=== PATIENT | male | born 1945 | race Caucasian/White ===

== ENCOUNTER 2017-02-24 22:07 | Observation (INO) ==
[2017-02-24] MEDS ORDERED: 0.9 % Sodium Chloride 1,000 ML IVC ONE (22:14)
[2017-02-24] MEDS ORDERED: Ondansetron 4 MG/2 ML VIAL IVP ONE (22:14)
[2017-02-24] MEDS ORDERED: *HR* Morphine 2 MG/ML SYRINGE IVP ONE (22:14)
[2017-02-24 22:39] LABS: Basophils # 0.1 K/mcL (0.0-0.2); Basophils % 0.2 %; Hematocrit 49.5 % (37.5-50.1); Hemoglobin 16.3 g/dL (12.9-16.9); Immature Granulocytes % 0.4 % (0-4); Immature Platelets 10.3 % (1.1-6.1); Lymphocytes # 0.8 K/mcL (0.6-4.6); Mean Corpuscular HGB Conc 32.9 g/dL (31.6-35.5); Mean Corpuscular Hemoglobin 28.9 pg (28.0-33.3); Mean Corpuscular Volume 87.8 fL (83.0-100.0); Mean Platelet Volume 11.2 fL (9.4-12.4); Monocytes # 1.2 K/mcL (0.0-1.3); Monocytes % 5.8 %; Neutrophils # 18.1 K/mcL (1.6-8.9); Platelet Count 223 K/mcL (140-400); Red Blood Count 5.64 M/mcL (4.19-5.50); Red Cell Distribution Width 12.7 % (11.5-14.5); Segmented Neutrophils % 89.6 %
[2017-02-24 22:45] LABS: INR 1.1; Prothrombin Time 12.4 Seconds (9.4-12.1)
[2017-02-24 22:56] LABS: Alanine Aminotransferase 26 Units/L (0-55); Albumin 4.1 g/dL (3.5-5.0); Albumin/Globulin Ratio 1.5 (1.1-2.2); Alkaline Phosphatase 97 Units/L (38-126); Amylase 47 Units/L (25-125); Aspartate Amino Transferase 20 Units/L (5-34); BUN/Creatinine Ratio 17 (6-26); Bilirubin,Direct 0.6 mg/dL (0.0-0.5); Bilirubin,Indirect 0.9 mg/dL (0.0-1.2); Bilirubin,Total 1.5 mg/dL (0.2-1.2); Blood Urea Nitrogen 14 mg/dL (8-26); Calcium 9.3 mg/dL (8.6-10.8); Carbon Dioxide 23 mEq/L (19-29); Chloride 101 mEq/L (98-109); Globulin 2.8 g/dL (2.4-3.5); Glucose 153 mg/dL (70-99); Lipase 12 Units/L (8-78); Osmolality,Calculated 284 (280-300); Potassium 3.8 mEq/L (3.5-4.5); Sodium 135 mEq/L (136-145); Total Protein 6.9 g/dL (6.0-8.3); eGFR For African Americans > 60 (> 60); eGFR For Non-African Americans > 60 (> 60)
[2017-02-25 00:17] LABS: Bilirubin,Urine Negative (Negative); Blood,Urine Negative (Negative); Clarity,Urine Clear (Clear); Color,Urine Yellow (Yellow); Glucose,Urine (UA) 500 mg/dL (Normal); Ketones,Urine 40 mg/dL (Negative); Leukocyte Esterase,Urine Negative (Negative); Nitrite,Urine Negative (Negative); Protein,Urine Trace mg/dL (Neg-Trace); Specific Gravity,Urine 1.028 (1.010-1.025); Urobilinogen,Urine Normal (Normal)
[2017-02-25 00:19] LABS: Bacteria,Urine None Seen per hpf (None-Few); Hyaline Casts,Urine None Seen per lpf (None-Few); Squamous Epithelial Cell,Urine Moderate per lpf (None-Few); WBC,Urine 0-3 per hpf (0-3)
[2017-02-25] MEDS ORDERED: 0.9 % Sodium Chloride 1,000 ML IVC SCH (00:45)
--- NOTE | 2017-02-25 01:08 | Emergency Department Note ---
Disposition Clinical Impression: Acute cholecystitis Disposition: Admitted As Inpatient Condition: Good [facility] - Forms: Work/School Release, ED Satisfaction Letter Abdominal Pain HPI - General Chief Complaint: ED Abdominal Pain Stated Complaint: abd pain Time Seen by Provider: 02/24/17 22:10 Source: patient, EMS Nursing Notes Reviewed: Yes Vital Signs Reviewed: Yes - History of Present Illness HPI Narrative: 71-year-old male with history of hypertension and presents with concern for abdominal pain. He was actually sent from the [facility] after findings of hydrops gallbladder on CAT scan. He has no fever but had onset of pain at 10 AM this morning. He denies previous surgical history. Zosyn was administered I the [facility]. Pain Scale: 2 - Related Data Home Medications Medication Instructions Recorded Confirmed Cholecalciferol (Vitamin D3) 1,000 unit PO DAILY 12/11/16 12/11/16 [Vitamin D3] Naproxen [Naprosyn] 500 mg PO DAILY 12/11/16 12/11/16 Previous Rx's Medication Instructions Recorded Docusate [Colace] 100 mg PO BID #60 capsule 12/11/16 Oxycodone HCl/Acetaminophen 1 each PO Q4HR PRN #25 tablet 12/11/16 [Percocet 5-325 mg Tablet] Allergies Allergy/AdvReac Type Severity Reaction Status Date / Time No Known Allergies Allergy Verified 12/11/16 13:08 All systems ED: reviewed and negative except as stated. Abdominal Pain PMH - Past Medical History Medical history: Reports: hyperlipidemia, hypertension, other Psychiatric history: Reports: no psych history - Social History Smoking status: Unknown if ever smoked Alcohol use: Reports: none Drug use: Reports: none Physical Exam Mild right upper quadrant tenderness, no peritonitis - General Limitations: no limitations General appearance: alert, in no apparent distress - Eye Eye exam: Present: normal appearance - ENT ENT exam: normal exam, normal oropharynx - Neck Neck exam: Present: normal inspection - Chest Chest inspection: Present: normal inspection - Respiratory Respiratory exam: Present: normal lung sounds bilaterally - Cardiovascular Cardiovascular exam: Present: regular rate, normal rhythm - Abdominal Exam Abdominal exam: Present: soft, Non-Tender - Extremities Exam Extremities exam: Present: normal inspection, full ROM - Expanded Lower Extremity Exam Hip/Pelvis exam: Present: normal inspection, full ROM Upper leg exam: Present: normal inspection, full ROM Knee exam: Present: normal inspection, full ROM Lower leg exam: Present: normal inspection, full ROM Ankle exam: Present: normal inspection, full ROM Foot/toe exam: Present: normal inspection, full ROM Neurovascular/Tendon exam: Present: normal capillary refill. Absent: pulse deficit Gait: observed and normal, not tested/not observed - Back Exam Back exam: Present: normal inspection, full ROM - Neurological Exam Neurological exam: Present: alert, oriented X3, CN II-XII intact - Psychiatric Psychiatric exam: Present: normal affect, normal mood - Skin Skin exam: Present: warm, dry Course Vital Signs Temperature 98.5 F 02/24/17 22:15 Pulse Rate 70 02/24/17 22:15 Respiratory Rate 16 02/24/17 22:15 Blood Pressure 154/95 02/24/17 22:15 O2 Sat by Pulse Oximetry 97 02/24/17 22:15 Temperature 98.5 F 02/24/17 22:15 Pulse Rate 77 02/25/17 00:25 Respiratory Rate 14 02/25/17 00:25 Blood Pressure 148/84 02/25/17 00:25 O2 Sat by Pulse Oximetry 95 02/25/17 00:25 Oxygen Delivery Oxygen Delivery Room Air Abdominal Pain - MDM Narrative Medical decision making narrative: 71-year-old male with acute cholecystitis. Zosyn was administered. Ultrasound confirms acute cholecystitis. Discussed with general surgery. The patient will need to be admitted. IV fluids initiated. Patient will be admitted to medicine after consultation with general surgery. - Medical Records Medical records reviewed: Yes I reviewed the patient's medical records. - Lab Data Lab results reviewed: Yes I reviewed the patient's lab results. Result diagrams: 02/24/17 22:30 02/24/17 22:30 Lab Results 02/24/17 02/24/17 02/24/17 Range/Units 22:30 22:30 22:30 WBC 20.2 H (4.3-11.1) K/mcL RBC 5.64 H (4.19-5.50) M/mcL Hgb 16.3 (12.9-16.9) g/dL Hct 49.5 (37.5-50.1) % MCV 87.8 (83.0-100.0) fL MCH 28.9 (28.0-33.3) pg MCHC 32.9 (31.6-35.5) g/dL RDW 12.7 (11.5-14.5) % Plt Count 223 (140-400) K/mcL MPV 11.2 (9.4-12.4) fL Immature Gran % 0.4 (0-4) % Seg Neutrophils % 89.6 % Lymphocytes % 4.0 % Monocytes % 5.8 % Eosinophils % 0.0 % Basophils % 0.2 % Neutrophils # 18.1 H (1.6-8.9) K/mcL Lymphocytes # 0.8 (0.6-4.6) K/mcL Monocytes # 1.2 (0.0-1.3) K/mcL Eosinophils # 0.0 (0.0-0.6) K/mcL Basophils # 0.1 (0.0-0.2) K/mcL Immature Plt Fraction 10.3 H (1.1-6.1) % PT 12.4 H (9.4-12.1) Seconds INR 1.1 Sodium 135 L (136-145) mEq/L Potassium 3.8 (3.5-4.5) mEq/L Chloride 101 (98-109) mEq/L Carbon Dioxide 23 (19-29) mEq/L BUN 14 (8-26) mg/dL Creatinine 0.84 (0.72-1.25) mg/dL Est GFR ( Amer) > 60 (> 60) Est GFR (Non-Af Amer) > 60 (> 60) BUN/Creatinine Ratio 17 (6-26) Glucose 153 H (70-99) mg/dL Calculated Osmolality 284 (280-300) Calcium 9.3 (8.6-10.8) mg/dL Total Bilirubin 1.5 H (0.2-1.2) mg/dL Direct Bilirubin 0.6 H (0.0-0.5) mg/dL Indirect Bilirubin 0.9 (0.0-1.2) mg/dL AST 20 (5-34) Units/L ALT 26 (0-55) Units/L Alkaline Phosphatase 97 (38-126) Units/L Troponin I (0-0.03) ng/mL Serum Total Protein 6.9 (6.0-8.3) g/dL Albumin 4.1 (3.5-5.0) g/dL Globulin 2.8 (2.4-3.5) g/dL Albumin/Globulin Ratio 1.5 (1.1-2.2) Amylase 47 (25-125) Units/L Lipase 12 (8-78) Units/L Urine Color (Yellow) Urine Clarity (Clear) Urine pH (5.0-8.0) pH Units Ur Specific [place] (1.010-1.025) Urine Protein (Neg-Trace) mg/dL Urine Glucose (UA) (Normal) mg/dL Urine Ketones (Negative) mg/dL Urine Blood (Negative) Urine Nitrite (Negative) Urine Bilirubin (Negative) Urine Urobilinogen (Normal) mg/dL Ur Leukocyte Esterase (Negative) Urine Microscopic RBC (0-3) per hpf Urine Microscopic WBC (0-3) per hpf Ur Squamous Epith Cells (None-Few) per lpf Urine Bacteria (None-Few) per hpf Hyaline Casts (None-Few) per lpf Ur Culture Indicated? (NO) 02/24/17 02/24/17 Range/Units 22:30 23:59 WBC (4.3-11.1) K/mcL RBC (4.19-5.50) M/mcL Hgb (12.9-16.9) g/dL Hct (37.5-50.1) % MCV (83.0-100.0) fL MCH (28.0-33.3) pg MCHC (31.6-35.5) g/dL RDW (11.5-14.5) % Plt Count (140-400) K/mcL MPV (9.4-12.4) fL Immature Gran % (0-4) % Seg Neutrophils % % Lymphocytes % % Monocytes % % Eosinophils % % Basophils % % Neutrophils # (1.6-8.9) K/mcL Lymphocytes # (0.6-4.6) K/mcL Monocytes # (0.0-1.3) K/mcL Eosinophils # (0.0-0.6) K/mcL Basophils # (0.0-0.2) K/mcL Immature Plt Fraction (1.1-6.1) % PT (9.4-12.1) Seconds INR Sodium (136-145) mEq/L Potassium (3.5-4.5) mEq/L Chloride (98-109) mEq/L Carbon Dioxide (19-29) mEq/L BUN (8-26) mg/dL Creatinine (0.72-1.25) mg/dL Est GFR ( Amer) (> 60) Est GFR (Non-Af Amer) (> 60) BUN/Creatinine Ratio (6-26) Glucose (70-99) mg/dL Calculated Osmolality (280-300) Calcium (8.6-10.8) mg/dL Total Bilirubin (0.2-1.2) mg/dL Direct Bilirubin (0.0-0.5) mg/dL Indirect Bilirubin (0.0-1.2) mg/dL AST (5-34) Units/L ALT (0-55) Units/L Alkaline Phosphatase (38-126) Units/L Troponin I 0.00 (0-0.03) ng/mL Serum Total Protein (6.0-8.3) g/dL Albumin (3.5-5.0) g/dL Globulin (2.4-3.5) g/dL Albumin/Globulin Ratio (1.1-2.2) Amylase (25-125) Units/L Lipase (8-78) Units/L Urine Color Yellow (Yellow) Urine Clarity Clear (Clear) Urine pH 7.0 (5.0-8.0) pH Units Ur Specific [place] 1.028 H (1.010-1.025) Urine Protein Trace (Neg-Trace) mg/dL Urine Glucose (UA) 500 H (Normal) mg/dL Urine Ketones 40 H (Negative) mg/dL Urine Blood Negative (Negative) Urine Nitrite Negative (Negative) Urine Bilirubin Negative (Negative) Urine Urobilinogen Normal (Normal) mg/dL Ur Leukocyte Esterase Negative (Negative) Urine Microscopic RBC 3-5 H (0-3) per hpf Urine Microscopic WBC 0-3 (0-3) per hpf Ur Squamous Epith Cells Moderate H (None-Few) per lpf Urine Bacteria None Seen (None-Few) per hpf Hyaline Casts None Seen (None-Few) per lpf Ur Culture Indicated? NO (NO) - EKG Data EKG attestation: Yes I reviewed and interpreted this EKG. Critical Care Time Critical Care Time: No
--- NOTE | 2017-02-25 03:16 | Internal Med History&Physical ---
Date of Encounter: 02/25/17 Time of Encounter: 03:14 Assessment and Plan (1) DVT prophylaxis Current visit: Yes Status: Acute Start Lovenox postop at prophylactic doses. (2) Elevated white blood cell count Current visit: Yes Status: Acute Likely secondary to cholecystitis. Monitor WBC trend, temperature curve. Follow-up blood cultures. Qualifiers: Leukocytosis type: unspecified Qualified Code(s): D72.829 - Elevated white blood cell count, unspecified (3) Acute cholecystitis Current visit: Yes Status: Acute Diagnosis based on atypical abdominal pain and ultrasound findings consistent with cholelithiasis and acute cholecystitis We will admit patient to our service. Start IV Zosyn to cover gram-negative rods and anaerobes. Consult general surgery. Nothing by mouth for possible cholecystectomy. Pain control with IV morphine. He is at low perioperative cardiovascular risk given his good exercise tolerance and no symptom-related limitations, no history of CAD renal disease or stroke. Internal Medicine - H&P: HPI Chief complaint: Abdominal pain Admitted From: Emergency Dept Plans for Post Hospital Care: Home History of present illness: Mr. Garrido is a 71 year old male with past medical history significant for essential hypertension who presented to the hospital due to abdominal pain. He states that he started having sharp, severe epigastric abdominal pain today at 10 AM, associated with nausea, not improved with rest, no vomiting, no aggravating factors. She presented to the [facility] and was transferred to our hospital for further workup and care. Imaging studies were suggestive of cholecystitis. A 10 point review of systems was negative except for history of present illness Past medical history as per the history of present illness Family history positive for history of CA in the patient's father at age 74 Social history: Denies tobacco alcohol and drug use, lives at home with his . He golfs weekly, keeps an active lifestyle. Past Med Surg Social Fam HX - Past Medical History Medical history: hyperlipidemia, hypertension, other Psychiatric history: depression - Past Surgical History Surgical History: no surgical history, non-contributory - Social History Smoking Status: Unknown if ever smoked Smokeless Tobacco Status: No Alcohol use: none Drug use: none Internal Medicine - H&P: Meds Cholecalciferol (Vitamin D3) [Vitamin D3] 1,000 unit PO DAILY 12/11/16 [History] Docusate [Colace] 100 mg PO BID #60 capsule 12/11/16 [Rx] Naproxen [Naprosyn] 500 mg PO DAILY 12/11/16 [History] Oxycodone HCl/Acetaminophen [Percocet 5-325 mg Tablet] 1 each PO Q4HR PRN #25 tablet 12/11/16 [Rx] Allergies No Known Allergies Allergy (Verified 12/11/16 13:08) All Systems PM: A 10-system review of systems was performed and is negative for pertinent findings except as documented above in the HPI. - Constitutional Vitals: Temp Pulse Resp BP Pulse Ox 99.6 F 80 15 134/67 95 02/25/17 02:23 02/25/17 02:23 02/25/17 02:23 02/25/17 02:23 02/25/17 02:23 General appearance: Present: A&O X 3 - Eye Eye exam: Present: PERRL, conjuntiva pink, sclera anicteric Pupils: Present: PERRL - Respiratory Respiratory exam: Present: CTAB. Absent: accessory muscle use, rales, rhonchi, wheezes - Cardiovascular Cardiovascular exam: Present: RRR, +S1, +S2. Absent: diastolic murmur, gallop, rubs, systolic murmur - GI/Abdominal GI/Abdominal exam: Present: normal bowel sounds, soft, no peritoneal signs. Absent: distended, tenderness - Extremities Exam Extremities exam: Present: warm, radial pulses palpable and symmetrical. Absent : calf tenderness, cyanotic, pedal edema - Neurological Exam Neurological exam: Present: CN II-XII intact, oriented X3, no focal deficits. Absent: pronater drift, facial droop, speech deficit - Skin Skin exam: Present: dry, intact Internal Med - H&P Results - Labs CBC & Chem 7: 02/24/17 22:30 02/24/17 22:30
[2017-02-25] MEDS ORDERED: Acetaminophen 325 MG TABLET PO PRN (03:22)
[2017-02-25] MEDS ORDERED: Naloxone 0.4 MG/ML INJ IVP PRN (03:22)
[2017-02-25] MEDS ORDERED: Ondansetron 4 MG/2 ML VIAL IVP PRN (03:22)
[2017-02-25] MEDS ORDERED: *HR* HYDROcodone/Acet 5/325 mg TABLET PO PRN (03:22)
[2017-02-25] MEDS ORDERED: *HR* Morphine 2 MG/ML SYRINGE IVP PRN ×3 (03:22→19:03)
[2017-02-25] MEDS: 0.9 % Sodium Chloride 1,000 ML IVC SCH ×3 (04:00→23:00)
[2017-02-25] MEDS: Piperacillin/Tazobactam 3.375 GM in D5% in Water (Mini-Bag+) 100 ML IVPB SCH ×3 (04:53→20:47)
[2017-02-25 05:50] LABS: Basophils % 0.1 %; Hematocrit 47.6 % (37.5-50.1); Hemoglobin 15.8 g/dL (12.9-16.9); Immature Granulocytes % 0.8 % (0-4); Lymphocytes # 1.3 K/mcL (0.6-4.6); Lymphocytes % 5.9 %; Mean Corpuscular HGB Conc 33.2 g/dL (31.6-35.5); Mean Corpuscular Hemoglobin 29.4 pg (28.0-33.3); Mean Corpuscular Volume 88.5 fL (83.0-100.0); Mean Platelet Volume 11.9 fL (9.4-12.4); Monocytes # 1.9 K/mcL (0.0-1.3); Monocytes % 8.5 %; Neutrophils # 18.3 K/mcL (1.6-8.9); Platelet Count 221 K/mcL (140-400); Red Blood Count 5.38 M/mcL (4.19-5.50); Red Cell Distribution Width 13.2 % (11.5-14.5); Segmented Neutrophils % 84.7 %
[2017-02-25 06:02] LABS: Alanine Aminotransferase 21 Units/L (0-55); Albumin 3.7 g/dL (3.5-5.0); Albumin/Globulin Ratio 1.4 (1.1-2.2); Alkaline Phosphatase 89 Units/L (38-126); Aspartate Amino Transferase 17 Units/L (5-34); BUN/Creatinine Ratio 15 (6-26); Bilirubin,Total 1.7 mg/dL (0.2-1.2); Blood Urea Nitrogen 13 mg/dL (8-26); Calcium 8.9 mg/dL (8.6-10.8); Carbon Dioxide 26 mEq/L (19-29); Chloride 101 mEq/L (98-109); Globulin 2.7 g/dL (2.4-3.5); Glucose 139 mg/dL (70-99); Magnesium 1.6 mg/dL (1.6-2.6); Osmolality,Calculated 286 (280-300); Potassium 3.7 mEq/L (3.5-4.5); Sodium 137 mEq/L (136-145); Total Protein 6.4 g/dL (6.0-8.3); eGFR For African Americans > 60 (> 60); eGFR For Non-African Americans > 60 (> 60)
[2017-02-25] MEDS: *HR* Enoxaparin 40 MG/0.4 ML SYRINGE SQ SCH (06:05)
[2017-02-25 08:11] LABS: Bilirubin,Direct 0.6 mg/dL (0.0-0.5)
--- NOTE | 2017-02-25 12:09 | Event Note ---
Date of Encounter: 02/25/17 Time of Encounter: 12:08 Patient feels slightly better compared to yesterday. Still has some right upper quadrant abdominal pain. Evaluated by surgery and recommended MRCP. Follow up on results and surgery recommendations.
--- NOTE | 2017-02-25 12:53 | General Surgery Consult Note ---
<Clifford Alvarado - Last Filed: 02/25/17 12:19> Date of Encounter: 02/25/17 Time of Encounter: 08:45 Assessment and Plan (1) Acute cholecystitis Current Visit: Yes Status: Acute Imaging and clinical exam suggestive of acute cholecystitis secondary to recently passed gallstone Patient is doing well this morning MRCP ordered and results noted We will start on clears with NPO at midnight Continue abx Plan on laparoscopic cholecystectomy tomorrow (2) Essential hypertension Current Visit: Yes Status: Acute Controlled Recommend metoprolol iv and hydralazine prn while NPO (3) DVT prophylaxis Current Visit: Yes Status: Acute Continue lovenox History of Present Illness Consult date: 02/25/17 Reason for consult: abdominal pain History of present illness: Tesfaye Garrido is a pleasant 71 year old male with PMH of htn presents to [facility] with abdominal pain that started at about 10 am yesterday. It started after a breakfast of cereal and coffee. The pain is located in the epigastric area. It was 10/10 in intensity initially and sharp in quality. The pain was associated with some chills, bloating, nausea, and vomiting x2 ("very dark"). He has not passed flatus or BMs since it started. He denies fever, changes in weight. The pain greatly improved since arriving here, and is now only a 2/10. CT Abd/Pelv performed at the [place] showed "a suspected 0.5 cm cystic duct stone with a hydropic gallbladder that contains cholelithiasis." Past Med Surg Social Fam HX - Past Medical History Medical history: hyperlipidemia, hypertension, other Psychiatric history: depression - Past Surgical History Surgical History: no surgical history, non-contributory - Social History Smoking Status: Unknown if ever smoked Smokeless Tobacco Status: No Alcohol use: none Drug use: none Medications and Allergies Cholecalciferol (Vitamin D3) [Vitamin D3] 1,000 unit PO DAILY 12/11/16 [History] Naproxen [Naprosyn] 500 mg PO DAILY 12/11/16 [History] Acyclovir [Zovirax] 800 mg PO 5XD 02/25/17 [History] Atenolol [Tenormin] 50 mg PO DAILY 02/25/17 [History] Ganciclovir [Zirgan] 1 appl OP 5XD 02/25/17 [History] Lisinopril [Zestril] 20 mg PO DAILY 02/25/17 [History] Simvastatin [Zocor] 10 mg PO HS 02/25/17 [History] metFORMIN [Glucophage] 1,000 mg PO BIDWM 02/25/17 [History] Allergies No Known Allergies Allergy (Verified 12/11/16 13:08) Review of Systems All systems PM: A 10-system review of systems was performed and is negative for pertinent findings except as documented above in the HPI. - Constitutional anorexia, chills, no fever(s) - Gastrointestinal abdominal pain, bloating, nausea, vomiting General Surgery Exam Initial Vital Signs Temp Pulse Resp BP Pulse Ox 98.5 F 70 16 154/95 97 02/24/17 22:15 02/24/17 22:15 02/24/17 22:15 02/24/17 22:15 02/24/17 22:15 - General physical appearance well developed, well nourished, no distress - Eyes normal ocular movement - ENT atraumatic, normocephalic - Neck trachea midline - Respiratory normal expansion, normal respiratory effort, clear to auscultation - Cardiovascular Cardiovascular exam: Present: RRR - Abdomen Abdomen general surgery: Present: bowel sounds present, soft, tender (mildly, Bowles's sign negative) Abdominal Tenderness: Present: epigastic, RUQ - Musculoskeletal Present: normal posture - Psychiatric Psychiatric general surgery: Present: appropriate, speech is normal Exam Initial Vital Signs Temp Pulse Resp BP Pulse Ox 98.5 F 70 16 154/95 97 02/24/17 22:15 02/24/17 22:15 02/24/17 22:15 02/24/17 22:15 02/24/17 22:15 Results - Labs 02/25/17 04:44 02/25/17 04:44 Abnormal lab results WBC 21.7 K/mcL (4.3-11.1) H 02/25/17 04:44 Neutrophils # 18.3 K/mcL (1.6-8.9) H 02/25/17 04:44 Monocytes # 1.9 K/mcL (0.0-1.3) H 02/25/17 04:44 Immature Plt Fraction 10.3 % (1.1-6.1) H 02/24/17 22:30 PT 12.4 Seconds (9.4-12.1) H 02/24/17 22:30 Glucose 139 mg/dL (70-99) H 02/25/17 04:44 POC Glucose 140 (58-89) H 02/25/17 11:44 Total Bilirubin 1.7 mg/dL (0.2-1.2) H 02/25/17 04:44 Direct Bilirubin 0.6 mg/dL (0.0-0.5) H 02/25/17 04:44 Ur Specific [place] 1.028 (1.010-1.025) H 02/24/17 23:59 Urine Glucose (UA) 500 mg/dL (Normal) H 02/24/17 23:59 Urine Ketones 40 mg/dL (Negative) H 02/24/17 23:59 Urine Microscopic RBC 3-5 per hpf (0-3) H 02/24/17 23:59 Ur Squamous Epith Cells Moderate per lpf (None-Few) H 02/24/17 23:59 Diabetes panel 02/25/17 Range/Units 04:44 Sodium 137 (136-145) mEq/L Potassium 3.7 (3.5-4.5) mEq/L Chloride 101 (98-109) mEq/L Carbon Dioxide 26 (19-29) mEq/L BUN 13 (8-26) mg/dL Creatinine 0.87 (0.72-1.25) mg/dL Glucose 139 H (70-99) mg/dL Calcium 8.9 (8.6-10.8) mg/dL AST 17 (5-34) Units/L ALT 21 (0-55) Units/L Alkaline Phosphatase 89 (38-126) Units/L Albumin 3.7 (3.5-5.0) g/dL Calcium panel 02/25/17 Range/Units 04:44 Calcium 8.9 (8.6-10.8) mg/dL Albumin 3.7 (3.5-5.0) g/dL Pituitary panel 02/25/17 Range/Units 04:44 Sodium 137 (136-145) mEq/L Potassium 3.7 (3.5-4.5) mEq/L Chloride 101 (98-109) mEq/L Carbon Dioxide 26 (19-29) mEq/L BUN 13 (8-26) mg/dL Creatinine 0.87 (0.72-1.25) mg/dL Glucose 139 H (70-99) mg/dL Calcium 8.9 (8.6-10.8) mg/dL Adrenal panel 02/25/17 Range/Units 04:44 Sodium 137 (136-145) mEq/L Potassium 3.7 (3.5-4.5) mEq/L Chloride 101 (98-109) mEq/L Carbon Dioxide 26 (19-29) mEq/L BUN 13 (8-26) mg/dL Creatinine 0.87 (0.72-1.25) mg/dL Glucose 139 H (70-99) mg/dL Calcium 8.9 (8.6-10.8) mg/dL Total Bilirubin 1.7 H (0.2-1.2) mg/dL AST 17 (5-34) Units/L ALT 21 (0-55) Units/L Alkaline Phosphatase 89 (38-126) Units/L Albumin 3.7 (3.5-5.0) g/dL All other labs normal. - Imaging CT scan - abdomen: report reviewed (From [place] - There is a suspected 0.5 cm cystic duct stone with a hydropic gallbladder that contains cholelithiasis. There is no detected gallbladder wall thickening, pericholecystic inflammatory stranding or pericholecystic fluid.) US - abdomen: report reviewed (IMPRESSION: Evidence of cholelithiasis and gallbladder sludge, with mild gallbladder wall thickening. Findings raise the possibility of cholecystitis. Trace amount of perihepatic ascites. D/ / Cipriano Honeycutt MD / Cipriano Honeycutt MD Interpreting Provider: Cipriano Honeycutt MD ) Additional studies: MR Abdomen IMPRESSION: 1. MR findings are most suggestive of acute cholecystitis. 2. Mild intra and extrahepatic biliary duct dilation. MRCP images are somewhat degraded due to respiratory motion, however, there is a questionable meniscus sign in the distal common bile duct and an impacted stone cannot be excluded. 3. Mild pancreatic duct dilation within the pancreatic head which is nonspecific. 4. Trace ascites in the right upper quadrant. D/ / 02/25/2017 11:36:02 Maryann Rodriguez MD / Jess Rivera Interpreting Provider: Maryann Rodriguez MD Consult Discharge Plan - Plan [facility]errals: [facility] Care Provider[facility] - <Bonnie Dash - Last Filed: 02/25/17 19:01> Date of Encounter: 02/25/17 Assessment and Plan (1) Acute cholecystitis Current Visit: Yes Status: Acute (2) Essential hypertension Current Visit: Yes Status: Chronic (3) DVT prophylaxis Current Visit: Yes Status: Acute (4) Elevated white blood cell count Current Visit: Yes Status: Acute Qualifiers: Leukocytosis type: unspecified Qualified Code(s): D72.829 - Elevated white blood cell count, unspecified (5) Acute cholecystitis Current Visit: Yes Status: Acute discussed with patient his mildly elevated LFT and dilated duct to 9 mm, will order mrcp to r/o CBD stone, if no stone present will plan laparoscopic cholecystectomy tomorrow, clears, prn pain control/antiemetics, ok home po med if stone present will consult gi for ercp when time for laparoscopic cholecystectomy, possible cholangiograms, possible open, risks and benefits discussed and he wishes to proceed History of Present Illness History of present illness: Patient is 71 yo male who developed epigastric and back pain yesterday. He has had similar but less intense episodes in the past for years which he describes as crampy pain. He had nausea and emesis. Feels very bloated. No diarrhea. No fevers, chills or night sweats. Episodes not food releated. Past Med Surg Social Fam HX - Past Medical History Source: patient Medical history: hyperlipidemia, hypertension - Past Surgical History Surgical History: other (circumcision) - Social History Occupational status: retired Review of Systems All systems PM: reviewed and no additional remarkable complaints except as stated All systems PM: A 10-system review of systems was performed and is negative for pertinent findings except as documented above in the HPI. General Surgery Exam Initial Vital Signs Temp Pulse Resp BP Pulse Ox 98.5 F 70 16 154/95 97 02/24/17 22:15 02/24/17 22:15 02/24/17 22:15 02/24/17 22:15 02/24/17 22:15 - General physical appearance well developed, well nourished, no distress - Eyes PERRL, normal ocular movement - ENT atraumatic, normocephalic - Neck trachea midline - Respiratory normal expansion, clear to auscultation - Cardiovascular Cardiovascular exam: Present: RRR, no murmurs/rubs/gallops - Abdomen Abdomen general surgery: Present: bowel sounds present, soft, tender. Absent: guarding, rebound Abdominal Tenderness: Present: RUQ - Integumentary Integumentary general surgery: Present: warm and dry, no abnormal pigmentation - Neurologic Present: CN 2-12 grossly intact - Musculoskeletal Present: normal gait, normal posture - Psychiatric Psychiatric general surgery: Present: A&Ox3, speech is normal Exam Initial Vital Signs Temp Pulse Resp BP Pulse Ox 98.5 F 70 16 154/95 97 02/24/17 22:15 02/24/17 22:15 02/24/17 22:15 02/24/17 22:15 02/24/17 22:15 Results - Labs 02/25/17 04:44 02/25/17 04:44 Abnormal lab results WBC 21.7 K/mcL (4.3-11.1) H 02/25/17 04:44 Neutrophils # 18.3 K/mcL (1.6-8.9) H 02/25/17 04:44 Monocytes # 1.9 K/mcL (0.0-1.3) H 02/25/17 04:44 Immature Plt Fraction 10.3 % (1.1-6.1) H 02/24/17 22:30 PT 12.4 Seconds (9.4-12.1) H 02/24/17 22:30 Glucose 139 mg/dL (70-99) H 02/25/17 04:44 POC Glucose 140 (58-89) H 02/25/17 11:44 Total Bilirubin 1.7 mg/dL (0.2-1.2) H 02/25/17 04:44 Direct Bilirubin 0.6 mg/dL (0.0-0.5) H 02/25/17 04:44 Ur Specific [place] 1.028 (1.010-1.025) H 02/24/17 23:59 Urine Glucose (UA) 500 mg/dL (Normal) H 02/24/17 23:59 Urine Ketones 40 mg/dL (Negative) H 02/24/17 23:59 Urine Microscopic RBC 3-5 per hpf (0-3) H 02/24/17 23:59 Ur Squamous Epith Cells Moderate per lpf (None-Few) H 02/24/17 23:59 Diabetes panel 02/25/17 Range/Units 04:44 Sodium 137 (136-145) mEq/L Potassium 3.7 (3.5-4.5) mEq/L Chloride 101 (98-109) mEq/L Carbon Dioxide 26 (19-29) mEq/L BUN 13 (8-26) mg/dL Creatinine 0.87 (0.72-1.25) mg/dL Glucose 139 H (70-99) mg/dL Calcium 8.9 (8.6-10.8) mg/dL AST 17 (5-34) Units/L ALT 21 (0-55) Units/L Alkaline Phosphatase 89 (38-126) Units/L Albumin 3.7 (3.5-5.0) g/dL Calcium panel 02/25/17 Range/Units 04:44 Calcium 8.9 (8.6-10.8) mg/dL Albumin 3.7 (3.5-5.0) g/dL Pituitary panel 02/25/17 Range/Units 04:44 Sodium 137 (136-145) mEq/L Potassium 3.7 (3.5-4.5) mEq/L Chloride 101 (98-109) mEq/L Carbon Dioxide 26 (19-29) mEq/L BUN 13 (8-26) mg/dL Creatinine 0.87 (0.72-1.25) mg/dL Glucose 139 H (70-99) mg/dL Calcium 8.9 (8.6-10.8) mg/dL Adrenal panel 02/25/17 Range/Units 04:44 Sodium 137 (136-145) mEq/L Potassium 3.7 (3.5-4.5) mEq/L Chloride 101 (98-109) mEq/L Carbon Dioxide 26 (19-29) mEq/L BUN 13 (8-26) mg/dL Creatinine 0.87 (0.72-1.25) mg/dL Glucose 139 H (70-99) mg/dL Calcium 8.9 (8.6-10.8) mg/dL Total Bilirubin 1.7 H (0.2-1.2) mg/dL AST 17 (5-34) Units/L ALT 21 (0-55) Units/L Alkaline Phosphatase 89 (38-126) Units/L Albumin 3.7 (3.5-5.0) g/dL All other labs normal. - Imaging CT scan - abdomen: report reviewed, image reviewed US - abdomen: report reviewed, image reviewed - Attending Attestation I examined this patient and my medical decision-making was reviewed with the Resident Physician. I agree with the documented findings, disposition and treatment plan as described except to the extent set forth below.
--- NOTE | 2017-02-25 19:19 | Anesthesia Evaluation PreOp ---
Date of Encounter: 02/25/17 Time of Encounter: 19:00 - Past History Planned Operation: Lap Cholecystectomy Cardiac History: HTN, Hyperlipidemia Pulmonary History: Denies Any Significant HX AGRICULTURIST History: Denies Any Significant HX Other Medical History: Other (Depression) Anesthesia History: No Prior Anesthetic Complications Alcohol Use: none Drug use: none Medications and Allergies Cholecalciferol (Vitamin D3) [Vitamin D3] 1,000 unit PO DAILY 12/11/16 [History] Naproxen [Naprosyn] 500 mg PO DAILY 12/11/16 [History] Acyclovir [Zovirax] 800 mg PO 5XD 02/25/17 [History] Atenolol [Tenormin] 50 mg PO DAILY 02/25/17 [History] Ganciclovir [Zirgan] 1 appl OP 5XD 02/25/17 [History] Lisinopril [Zestril] 20 mg PO DAILY 02/25/17 [History] Simvastatin [Zocor] 10 mg PO HS 02/25/17 [History] metFORMIN [Glucophage] 1,000 mg PO BIDWM 02/25/17 [History] Allergies No Known Allergies Allergy (Verified 12/11/16 13:08) - Meds/Allergy Pre-op Review Medications Reviewed: Yes Allergies Reviewed: Yes Beta Blockers on Current Med List: No Anesthesia Results - Labs 02/25/17 04:44 02/25/17 04:44 - Imaging EKG: report reviewed (SR marked left axis deviation) Anesthesia Exam O2 Sat Height 1.93 m Height 1.83 m Weight 92.59 kg Weight 204.2 kg Weight 79.379 kg O2 Sat by Pulse Oximetry 95 O2 Sat by Pulse Oximetry 93 O2 Sat by Pulse Oximetry 93 O2 Sat by Pulse Oximetry 93 O2 Sat by Pulse Oximetry 95 O2 Sat by Pulse Oximetry 95 O2 Sat by Pulse Oximetry 97 Vital Signs Temp Pulse Resp BP Pulse Ox 98.5 F 70 16 154/95 97 02/24/17 22:15 02/24/17 22:15 02/24/17 22:15 02/24/17 22:15 02/24/17 22:15 Height: 6'4 Weight: 204 lbs NPO (# of Hours): MN Pain Scale: 0 - HEENT Pupil (Motor): Pupils equal, EOMI Mallampati: II Denture Type: Upper: Complete Oral Opening: Greater than 3 - AGRICULTURIST LOC: Oriented AGRICULTURIST Motor: Normal RUE, Normal LUE, Normal RLE, Normal LLE, Normal Face AGRICULTURIST Sensory: Normal: RUE, LUE, RLE, LLE, Face - Cardiac Rhythm: Regular Murmur: None JVD: No Carotid Bruit: No - Pulmonary Breath Sounds: bilateral Clear Respiratory Effort: Symmetrical Anesthesia Assess/Plan ASA Score: 2 Modified Ari Scale for Level of Consciousness: Cooperative, oriented, and tranquil Anesthetic Plan: General Monitoring Plan: Standard Monitors Recovery Plan: PACU (Discussed GA, agrees to proceed)
[2017-02-26] MEDS: Piperacillin/Tazobactam 3.375 GM in D5% in Water (Mini-Bag+) 100 ML IVPB SCH ×2 (04:43→12:03)
[2017-02-26 05:03] LABS: Basophils % 0.2 %; Hematocrit 41.2 % (37.5-50.1); Hemoglobin 13.3 g/dL (12.9-16.9); Immature Granulocytes % 0.9 % (0-4); Lymphocytes # 1.6 K/mcL (0.6-4.6); Lymphocytes % 7.6 %; Mean Corpuscular HGB Conc 32.3 g/dL (31.6-35.5); Mean Corpuscular Hemoglobin 28.9 pg (28.0-33.3); Mean Corpuscular Volume 89.4 fL (83.0-100.0); Mean Platelet Volume 11.4 fL (9.4-12.4); Monocytes # 1.7 K/mcL (0.0-1.3); Monocytes % 8.4 %; Neutrophils # 17.1 K/mcL (1.6-8.9); Platelet Count 186 K/mcL (140-400); Red Blood Count 4.61 M/mcL (4.19-5.50); Red Cell Distribution Width 13.2 % (11.5-14.5); Segmented Neutrophils % 82.9 %
[2017-02-26 05:24] LABS: Alanine Aminotransferase 16 Units/L (0-55); Albumin/Globulin Ratio 1.2 (1.1-2.2); Alkaline Phosphatase 70 Units/L (38-126); Aspartate Amino Transferase 18 Units/L (5-34); BUN/Creatinine Ratio 17 (6-26); Bilirubin,Direct 0.8 mg/dL (0.0-0.5); Bilirubin,Indirect 0.8 mg/dL (0.0-1.2); Bilirubin,Total 1.6 mg/dL (0.2-1.2); Blood Urea Nitrogen 14 mg/dL (8-26); Calcium 8.3 mg/dL (8.6-10.8); Carbon Dioxide 25 mEq/L (19-29); Chloride 105 mEq/L (98-109); Globulin 2.5 g/dL (2.4-3.5); Glucose 123 mg/dL (70-99); Osmolality,Calculated 286 (280-300); Potassium 3.7 mEq/L (3.5-4.5); Sodium 137 mEq/L (136-145); Total Protein 5.4 g/dL (6.0-8.3); eGFR For African Americans > 60 (> 60); eGFR For Non-African Americans > 60 (> 60)
[2017-02-26 05:27] LABS: Albumin 2.9 g/dL (3.5-5.0)
[2017-02-26] MEDS: *HR* Enoxaparin 40 MG/0.4 ML SYRINGE SQ SCH (05:27)
[2017-02-26] MEDS ORDERED: Lisinopril 20 MG TABLET PO SCH (09:00)
[2017-02-26] MEDS: 0.9 % Sodium Chloride 1,000 ML IVC SCH ×2 (10:15→22:04)
--- NOTE | 2017-02-26 11:40 | Internal Med Progress Note ---
Date of Encounter: 02/26/17 Time of Encounter: 08:50 - Assessment and plan (1) Acute cholecystitis Current Visit: Yes Status: Acute Assessment and plan: Patient with features suggestive of acute cholecystitis with right upper quadrant pain. MRCP confirms diagnosis of acute cholecystitis but unclear if there is a ductal stone. Surgery following and plans to take patient for laparoscopic cholecystectomy today. Moderate risk for complications. Continue supportive care. Continue IV antibiotics as WBC count remains elevated. (2) Essential hypertension Current Visit: Yes Status: Chronic Assessment and plan: Blood pressure is well controlled. Continue lisinopril (3) DVT prophylaxis Current Visit: Yes Status: Acute Assessment and plan: On Lovenox - Subjective Interval history: Patient complains of some right upper quadrant discomfort but overall pain is improving. Patient had low-grade fever with MAXIMUM TEMPERATURE of 100.2 this morning. Patient has not requested any narcotic medications for pain today. - Constitutional Vitals: Temp Pulse Resp BP Pulse Ox 98.9 F 99 18 115/75 93 02/26/17 07:15 02/26/17 07:15 02/26/17 07:15 02/26/17 07:15 02/26/17 08:34 General appearance: Present: cooperative, mild distress, A&O X 3, answers questions appropriately - Respiratory Respiratory exam: Present: CTAB. Absent: accessory muscle use, rales, rhonchi, wheezes - Cardiovascular Cardiovascular exam: Present: RRR, +S1, +S2. Absent: diastolic murmur, gallop, rubs, systolic murmur - GI/Abdominal GI/Abdominal exam: Present: normal bowel sounds, soft, tenderness (Right upper quadrant), no peritoneal signs. Absent: distended - Extremities Exam Extremities exam: Present: warm, radial pulses palpable and symmetrical. Absent : calf tenderness, cyanotic, pedal edema - Neurological Exam Neurological exam: Present: alert, oriented X3, no focal deficits. Absent: facial droop, speech deficit Internal Medicine: Result - Labs CBC & Chem 7: 02/26/17 04:26 02/26/17 04:26 Labs: Short CBC 02/26/17 Range/Units 04:26 WBC 20.7 H (4.3-11.1) K/mcL Hgb 13.3 D (12.9-16.9) g/dL Hct 41.2 (37.5-50.1) % Plt Count 186 (140-400) K/mcL Neutrophils # 17.1 H (1.6-8.9) K/mcL BMP 02/26/17 04:26 Sodium 137 Potassium 3.7 Chloride 105 Carbon Dioxide 25 BUN 14 Creatinine 0.81 Glucose 123 H Calcium 8.3 L Liver Function 02/26/17 Range/Units 04:26 Total Bilirubin 1.6 H (0.2-1.2) mg/dL Direct Bilirubin 0.8 H (0.0-0.5) mg/dL AST 18 (5-34) Units/L ALT 16 (0-55) Units/L Alkaline Phosphatase 70 (38-126) Units/L Albumin 2.9 L D (3.5-5.0) g/dL - ABG Interpretation ABG results: PT/INR, D-dimer PT 12.4 Seconds (9.4-12.1) H 02/24/17 22:30 - Impressions Impressions Abdomen MRI 02/25/17 07:18 IMPRESSION: 1. MR findings are most suggestive of acute cholecystitis. 2. Mild intra and extrahepatic biliary duct dilation. MRCP images are somewhat degraded due to respiratory motion, however, there is a questionable meniscus sign in the distal common bile duct and an impacted stone cannot be excluded. 3. Mild pancreatic duct dilation within the pancreatic head which is nonspecific. 4. Trace ascites in the right upper quadrant. D/ / 02/25/2017 11:36:02 Maryann Rodriguez MD / Jess Rivera Interpreting Provider: Maryann Rodriguez MD Consult Discharge Plan - Plan [facility]errals: [facility] [Primary Care Provider] -
[2017-02-26] MEDS ORDERED: Lidocaine -MPF 4% 5 ML AMPUL ONE (16:24)
[2017-02-26] MEDS ORDERED: *HR* Midazolam HCl 2 MG/2 ML VIAL ONE (16:24)
[2017-02-26] MEDS ORDERED: *HR* Propofol 200 MG/20 ML VIAL IVP ONE (16:24)
[2017-02-26] MEDS ORDERED: *HR* FentaNYL (PF) 100 MCG/2 ML VIAL ONE ×2 (16:24→16:43)
[2017-02-26] MEDS ORDERED: Lidocaine -MPF 2% 2 ML VIAL ONE (16:24)
[2017-02-26] MEDS ORDERED: Acetaminophen IV 1,000 MG/100 ML INFUS..BTL ONE (16:32)
[2017-02-26] MEDS ORDERED: Ondansetron 4 MG/2 ML VIAL IVP ONE (17:02)
[2017-02-26] MEDS ORDERED: *HR* Meperidine 25 MG/ML SYRINGE IVP PRN (17:02)
[2017-02-26] MEDS ORDERED: Albuterol 2.5 MG/3 ML NEBULIZER IH ONE (17:02)
[2017-02-26] MEDS ORDERED: *HR* Labetalol 20 MG/4 ML SYRINGE IVP PRN (17:02)
[2017-02-26] MEDS ORDERED: *HR* HYDROmorphone (PF) 1 MG/ML SYRINGE IVP PRN (17:02)
[2017-02-26] MEDS ORDERED: Naloxone 0.4 MG/ML INJ IVP PRN ×2 (17:02→20:20)
[2017-02-26] MEDS ORDERED: Dexamethasone 4 MG/ML VIAL ONE (17:12)
[2017-02-26] MEDS ORDERED: Ondansetron 4 MG/2 ML VIAL ONE (17:12)
[2017-02-26] MEDS ORDERED: Ringers Solution, Lactated 1,000 ML IVC SCH (17:15)
[2017-02-26] MEDS ORDERED: Neostigmine Methylsulfate 3 MG/3 ML SYRINGE ONE (18:26)
[2017-02-26] MEDS ORDERED: *HR* HYDROmorphone 2 MG/ML SYRINGE ONE (18:27)
--- NOTE | 2017-02-26 18:49 | Operative Note ---
Date of procedure: 02/26/17 Pre-op diagnosis: acute cholecystitis Post-op diagnosis: other (gangrenous necrotic acute cholecystitis) Procedure: Laparoscopic cholecystectomy with cholangiograms Complications: none immediate Anesthesia: GETA, local Local Anesthetics: 0.5% Sensorcaine HCL SubQ (cc) (30) Surgeon: Bonnie Dash [employer] Supervisor: Sulema Liao Estimated blood loss (cc): 20 Specimen: gallbladder and contents Condition: stable Disposition: PACU Procedure in Detail: The patient was brought into the operating suite and placed supine on the operating table. Sign-in was performed and everyone was in agreement. Anesthesia was induced and patient was endotracheally intubated by anesthesia without incident and they also placed an OG tube. The abdomen was prepped and draped in the usual sterile fashion. A timeout was performed again everyone was in agreement. A supraumbilical incision was made through the skin into the subcutaneous tissue with an 11 blade. Towel clamps were placed on either side of the umbilicus for retraction. S retractors were used to dissect down to the anterior abdominal wall linea alba fascia. A Veress needle was placed through this incision and a water drop test confirmed placement and the abdomen was insufflated. The abdomen was entered with a 5 mm 0 degree laparoscope on a 5 mm Xcel trocar. The area and entry was visualized was no bleeding and no apparent bowel injury. A 5 mm subxiphoid port was placed under direct visualization after first incising the skin with an 11 blade. A right upper quadrant subcostal position midclavicular line 5 mm port was placed under direct visualization after first incising skin with 11 blade. The laparoscope was placed in this and we exchanged the supraumbilical port for a 12 mm port under direct visualization. The last 5 mm port was placed in the right upper quadrant subcostal position anterior axillary line after first incising the skin with an 11 blade. The patient was placed in steep reverse Trendelenburg left side down position. The dome of the gallbladder was grasped and retracted cephalad. Thick dense inflammed omental adhesions to the body and infundibulum of the gallbladder were taken down bluntly with the [place]. The gallbladder was necrotic and gangrenous. The dome of the gallbladder tore with restraction with resulting spillage of bile. The infundibulum was grasped and retracted laterally. Using the [place] we dissected out the cystic duct and cystic artery. A 5 mm Hemoclip was placed proximally on the cystic artery. A 5 mm l Hemoclip was placed proximally on the cystic duct. The cystic duct was partially transected with curved scissors. Using the Mehta clamp, the cholangiocatheter was introduced into the partially transected cystic duct with the [place]. A metal 5 mm hemoclip was placed across the proximal cystic duct and the cholangiocatheter. The catheter flushed easily. The patient was placed in Trendelenberg position. Cholangiograms were obtained showing contrast up into the left and right intrahepatic ducts down through the common hepatic and common bile duct into the duodenum, the duct was very dilated. 22of Isovue was used for the cholangiograms patient was returned to reverse Trendelenburg left side down position. The clip on the cholangiocatheter and proximal cystic duct was removed as well as the cholangiocatheter. Three 5 mm hemoclips were placed proximally on the cystic duct and it was transected with curved scissors. Another 5 mm hemoclip was placed proximally on the cystic artery one distally and it was transected with curved scissors. The gallbladder was removed off the cystic plate with the Bovie. Any bleeding points were stopped with the Bovie. The gallbladder was placed in a laparoscopic Endo Catch bag and removed via the supraumbilical incision site. The inferior edge of the liver was bluntly retracted cephalad and the cystic plate was copiously irrigated with sterile saline. There was no bleeding or apparent bile leak from the cystic plate and the clips on the cystic artery and duct were intact. All irrigation was suctioned free from the abdomen. All stones that were found were removed with the grasper. All insufflation was suctioned free from the abdomen and the ports removed. The abdominal wall at the supraumbilical incision site was closed with a 0 Vicryl [id number] stitch. 30 mL of 0.5% Marcaine was injected subcutaneously at the 4 port sites. The skin at the three 5 mm port sites were closed with 4-0 Monocryl interrupted subcuticular stitches. The skin at the supraumbilical incision site was closed with a 4-0 Monocryl running subcuticular stitch. Steri-Strips were applied to all wounds. The patient was awoken in the operating suite having tolerated the procedure well and were taken to PACU in stable condition after all lap and ensuring counts were correct at the end of the case.
--- NOTE | 2017-02-26 19:42 | Anesthesia Evaluation Post Op ---
Date of Encounter: 02/26/17 Time of Encounter: 19:20 - Vital Signs Vital Signs: Vital Signs/O2 Sat/Glucose, Most Current Temp Pulse Resp BP Pulse Ox 02/26/17 19:24 76 18 111/73 93 02/26/17 19:14 98.8 F 74 18 125/76 94 02/26/17 19:04 76 18 123/77 02/26/17 18:54 76 18 120/66 93 02/26/17 18:44 99.2 F 76 18 123/76 94 - Lungs Lungs: Clear Ascult./Percussion - Airway Airway: Non-obstructed - Cardiovascular Regular Rate - Mental Status Mental Status: Alert & Oriented, Answers Appropriately - Pain Pain Scale: 0 - Nausea Vomiting Nausea Vomiting: Not Present - Hydration Hydration: NPO - Discharge PostOp Status: Transfer Patient to floor
[2017-02-26] MEDS ORDERED: *HR* Dextrose 50 % in Water (Syg) 50 ML SYRINGE IVP PRN (20:20)
[2017-02-26] MEDS ORDERED: Dextrose Gel 15 GM PO PRN ×2 (20:20)
[2017-02-26] MEDS ORDERED: *HR* OxyCODONE/APAP 5/325 TABLET PO PRN (20:20)
[2017-02-26] MEDS ORDERED: Ondansetron 4 MG/2 ML VIAL IVP PRN (20:20)
[2017-02-26] MEDS ORDERED: D5% in Water 1,000 ML IVC PRN (20:20)
[2017-02-26] MEDS ORDERED: *HR* Metoprolol 5 MG/5 ML VIAL IVP PRN (20:20)
[2017-02-26] MEDS ORDERED: *HR* Morphine 2 MG/ML SYRINGE IVP PRN (20:20)
[2017-02-27] MEDS: Insulin LISPRO 300 UNITS/3 ML VIAL SQ SCH ×3 (00:21→11:49)
[2017-02-27 05:46] LABS: Basophils % 0.1 %; Hemoglobin 13.2 g/dL (12.9-16.9); Immature Granulocytes % 0.7 % (0-4); Lymphocytes # 1.1 K/mcL (0.6-4.6); Lymphocytes % 6.1 %; Mean Corpuscular HGB Conc 32.2 g/dL (31.6-35.5); Mean Corpuscular Hemoglobin 29.7 pg (28.0-33.3); Mean Corpuscular Volume 92.3 fL (83.0-100.0); Mean Platelet Volume 11.8 fL (9.4-12.4); Monocytes # 1.3 K/mcL (0.0-1.3); Monocytes % 7.8 %; Neutrophils # 14.6 K/mcL (1.6-8.9); Platelet Count 171 K/mcL (140-400); Red Blood Count 4.44 M/mcL (4.19-5.50); Red Cell Distribution Width 13.2 % (11.5-14.5); Segmented Neutrophils % 85.3 %
[2017-02-27 05:56] LABS: BUN/Creatinine Ratio 24 (6-26); Blood Urea Nitrogen 20 mg/dL (8-26); Calcium 8.6 mg/dL (8.6-10.8); Carbon Dioxide 24 mEq/L (19-29); Chloride 107 mEq/L (98-109); Glucose 117 mg/dL (70-99); Osmolality,Calculated 290 (280-300); Potassium 4.1 mEq/L (3.5-4.5); Sodium 138 mEq/L (136-145); eGFR For African Americans > 60 (> 60); eGFR For Non-African Americans > 60 (> 60)
[2017-02-27 05:57] LABS: Albumin 2.7 g/dL (3.5-5.0); Bilirubin,Direct 0.7 mg/dL (0.0-0.5); Bilirubin,Indirect 0.5 mg/dL (0.0-1.2); Bilirubin,Total 1.2 mg/dL (0.2-1.2); Globulin 2.7 g/dL (2.4-3.5); Total Protein 5.4 g/dL (6.0-8.3)
[2017-02-27 07:59] VITALS: BP 124/67
[2017-02-27] MEDS: 0.9 % Sodium Chloride 1,000 ML IVC SCH (08:08)
--- NOTE | 2017-02-27 10:55 | Discharge Summary ---
Date of Encounter: 02/27/17 Time of Encounter: 10:52 - Discharge Diagnosis (1) Acute cholecystitis Priority: Primary Status: Acute (2) Essential hypertension Priority: Secondary Status: Chronic (3) DVT prophylaxis Priority: Secondary Status: Acute - Discharge Medications Prescriptions: OxyCODONE/APAP 5/325 [Percocet 5/325 MG] 1 each PO Q6HR PRN #14 tab PRN Reason: Pain (1-5) Amoxicillin/Clavulanate [Augmentin] 875 mg PO BIDWM #20 tablet Docusate [Colace] 100 mg PO BID PRN #20 PRN Reason: Constipation Home Medications: Atenolol [Tenormin] 50 mg PO DAILY 02/25/17 [History] Betamethasone Dipropionate 1 appl TP BID 02/26/17 [History] Amoxicillin/Clavulanate [Augmentin] 875 mg PO BIDWM #20 tablet 02/27/17 [Rx] Docusate [Colace] 100 mg PO BID PRN #20 02/27/17 [Rx] OxyCODONE/APAP 5/325 [Percocet 5/325 MG] 1 each PO Q6HR PRN #14 tab 02/27/17 [Rx ] Allergies/Adverse Reactions: Allergies No Known Allergies Allergy (Verified 12/11/16 13:08) Procedures/tests Complete & Pending: Procedures Performed prior 72 hours Category Date Time Status MRCP [MR abdomen wo con] [MR] Stat MRI 02/25/17 07:18 Draft Date of admission: 02/25/17 02:00 [facility] Consults: 02/25/17 03:25 Consult to Physician [CONS] Routine Consulting Provider: Bonnie Dash Reason for Consult: Acute cholecystitis Call Completed: Yes Discharging clinician: Renetta Mccurdy Anticipated date of discharge: 02/27/17 - Patient Status Disposition: Home, Self-Care Condition: Good Functional capacity at discharge: independent ambulation Overall status at discharge: patient is progressing back to baseline - Discharge Instructions Instructions: Chronic Hypertension (DC) [facility]: [facility] [Primary Care Provider[facility] - (in 1-2 weeks) Additional Instructions: Patient to follow up lap na with Kaelyn Coronado at [facility] on 02/26/17 The patient can take a shower starting today. Change bandages for incisions daily. Wash hands with soap and warm water before and after wound care. Hand washing prevents an infection. Take antibiotics and pain medication as prescribed by primary team. High-fiber foods, extra liquids, and regular exercise can help prevent constipation. Contact health provider for new onset fever, chills, cough, incision infection, trouble having a bowel movement, repeated vomiting, or frequent diarrhea. Seek for emergent care for chest pain, shortness of breath, or hemoptysis - Diet and Activity Activity: increase activity as tolerated Diet: low fat, low cholesterol, low salt diet Hospital course: Mr. Garrido is a 71 year old male patient with history of hypertension and hyperlipidemia was admitted here with severe right upper quadrant abdominal pain from acute cholecystitis. Patient had elevated WBC count and was treated with IV antibiotics. He was evaluated by surgery and recommended MRCP to look for any biliary stone. MRCP was done and diagnosis of acute cholecystitis was confirmed. There was also a finding of possible stone in the common biliary duct which was not clear based on images obtained. Patient underwent laparoscopic cholecystectomy with cholangiogram yesterday. Since then he is doing much better. His pain is well controlled. He is tolerating diet without any nausea or vomiting. He is stable to be discharged home per surgery and will follow up with surgery after discharge. He will be discharged on Augmentin complete antibiotic course as he did have a necrotic gallbladder. - Time Spent with Patient Total time spent providing and/or coordinating discharge services: Greater than 30 minutes (35 min) - Constitutional Vitals: Temp Pulse Resp BP Pulse Ox 98.3 F 64 18 124/67 95 02/27/17 07:58 02/27/17 07:58 02/27/17 07:58 02/27/17 07:58 02/27/17 07:58 General appearance: Present: cooperative, mild distress, A&O X 3, answers questions appropriately - Respiratory Respiratory exam: Present: CTAB. Absent: accessory muscle use, rales, rhonchi, wheezes - GI/Abdominal GI/Abdominal exam: Present: normal bowel sounds, soft, no peritoneal signs. Absent: distended, tenderness - Extremities Exam Extremities exam: Present: warm, radial pulses palpable and symmetrical. Absent : calf tenderness, cyanotic, pedal edema - Neurological Exam Neurological exam: Present: alert, no focal deficits. Absent: facial droop, speech deficit - VTE Documentation of Mechanical Device: Intermittent pneumatic compression device
--- NOTE | 2017-02-27 11:22 | General Surgery Progress Note ---
Date of Encounter: 02/27/17 Time of Encounter: 09:00 - Assessment and Plan (1) Status post laparoscopic cholecystectomy Status: Acute Post-operative day 1 Laparoscopic cholecystectomy with cholangiogram. Patient is doing well today. Plan per discharge instructions. Subjective Patient reports: no new complaints, feels better, pain is less, tolerating liquids well, voiding w/o difficulty, flatus, no bowel movement, afebrile Objective Vital Signs - Last 8 Hours Temp Pulse Resp BP Pulse Ox 02/27/17 07:58 98.3 F 64 18 124/67 95 02/27/17 07:13 95 02/27/17 04:31 98.5 F 78 16 125/77 95 Intake and Output 02/26/17 02/27/17 02/27/17 23:59 07:59 15:59 Intake Total 1100 / 1100 100 / 100 1720 / 1720 Output Total 20 / 20 200 / 200 200 / 200 Balance 1080 / 1080 -100 / -100 1520 / 1520 Intake: IV Fluids 1100 / 1100 100 / 100 1000 / 1000 0.9 % Sodium Chloride 1, 1000 / 1000 000 ML @ 100 mls/hr IVC . Q10H JIMMY Rx#:[id number] Zosyn 3.375 GM In 100 / 100 Dextrose 5% (Minibag+) 100 ML 100 ML @ 25 mls/hr IVPB Q8H JIMMY Rx#: [id number] Oral 0 / 0 0 / 0 720 / 720 Output: Urine 200 / 200 200 / 200 Estimated Blood Loss 20 / 20 Other: Meal NPO Breakfast Percent of Meal Consumed 0% Weight 93.157 kg Blood Glucose* 170 113 Patient Weight 02/27/17 23:59 Weight 93.157 kg - General physical appearance well developed, well nourished, no distress - Eyes normal ocular movement - ENT atraumatic, normocephalic, CN 2-12 grossly intact - Neck Neck exam: trachea midline - Cardiovascular Cardiovascular exam: Present: RRR, no murmurs/rubs/gallops - Abdomen Abdomen: Present: bowel sounds present, soft, tender (as expected post surgery ) Hernia: none - Incision Incision: Present: clean and dry (3 epigastric laparoscopic incisions), intact - Labs 02/27/17 04:31 02/27/17 04:31 Diabetes panel 02/27/17 02/27/17 Range/Units 04:31 04:31 Sodium 138 (136-145) mEq/L Potassium 4.1 (3.5-4.5) mEq/L Chloride 107 (98-109) mEq/L Carbon Dioxide 24 (19-29) mEq/L BUN 20 (8-26) mg/dL Creatinine 0.83 (0.72-1.25) mg/dL Glucose 117 H (70-99) mg/dL Calcium 8.6 (8.6-10.8) mg/dL AST 30 (5-34) Units/L ALT 33 (0-55) Units/L Alkaline Phosphatase 67 (38-126) Units/L Albumin 2.7 L (3.5-5.0) g/dL Calcium panel 02/27/17 02/27/17 Range/Units 04:31 04:31 Calcium 8.6 (8.6-10.8) mg/dL Albumin 2.7 L (3.5-5.0) g/dL Pituitary panel 02/27/17 Range/Units 04:31 Sodium 138 (136-145) mEq/L Potassium 4.1 (3.5-4.5) mEq/L Chloride 107 (98-109) mEq/L Carbon Dioxide 24 (19-29) mEq/L BUN 20 (8-26) mg/dL Creatinine 0.83 (0.72-1.25) mg/dL Glucose 117 H (70-99) mg/dL Calcium 8.6 (8.6-10.8) mg/dL Adrenal panel 02/27/17 02/27/17 Range/Units 04:31 04:31 Sodium 138 (136-145) mEq/L Potassium 4.1 (3.5-4.5) mEq/L Chloride 107 (98-109) mEq/L Carbon Dioxide 24 (19-29) mEq/L BUN 20 (8-26) mg/dL Creatinine 0.83 (0.72-1.25) mg/dL Glucose 117 H (70-99) mg/dL Calcium 8.6 (8.6-10.8) mg/dL Total Bilirubin 1.2 (0.2-1.2) mg/dL AST 30 (5-34) Units/L ALT 33 (0-55) Units/L Alkaline Phosphatase 67 (38-126) Units/L Albumin 2.7 L (3.5-5.0) g/dL - VTE Documentation of Mechanical Device: Intermittent pneumatic compression device Consult Discharge Plan - Plan Instructions: Chronic Hypertension (DC) Additional Instructions: Patient to follow up samuel monzon with Kaelyn Coronado at [facility] on 03/08/17 The patient can take a shower starting today. Change bandages for incisions daily. Wash hands with soap and warm water before and after wound care. Hand washing prevents an infection. Take antibiotics and pain medication as prescribed by primary team. High-fiber foods, extra liquids, and regular exercise can help prevent constipation. Contact health provider for new onset fever, chills, cough, incision infection, trouble having a bowel movement, repeated vomiting, or frequent diarrhea. Seek for emergent care for chest pain, shortness of breath, or hemoptysis [facility]errals: [facility] [Primary Care Provider[facility] - (in 1-2 weeks) Prescriptions: OxyCODONE/APAP 5/325 [Percocet 5/325 MG] 1 each PO Q6HR PRN #14 tab PRN Reason: Pain (1-5) Amoxicillin/Clavulanate [Augmentin] 875 mg PO BIDWM #20 tablet Docusate [Colace] 100 mg PO BID PRN #20 PRN Reason: Constipation
[2017-02-27] MEDS ORDERED: Piperacillin/Tazobactam 3.375 GM in D5% in Water (Mini-Bag+) 100 ML IVPB SCH ×2 (12:00→20:00)
== END 2017-02-27 13:15 | disposition home or self-care (01) ==
LOC: EMEROO 22:07 → 3ANU 22:07
PROVIDERS: ADMIT Internal Medicine; ATTEND Internal Medicine

== ENCOUNTER 2020-11-12 20:42 | Inpatient (IN) ==
[2020-11-12 22:53] LABS: Basophils # 0.1 K/mcL (0.0-0.2); Basophils % 0.3 %; Hematocrit 31.5 % (37.5-50.1); Hemoglobin 9.8 g/dL (12.9-16.9); Immature Granulocytes % 0.7 % (0-4); Lymphocytes # 1.3 K/mcL (0.6-4.6); Lymphocytes % 6.8 %; Mean Corpuscular HGB Conc 31.1 g/dL (31.6-35.5); Mean Corpuscular Hemoglobin 30.5 pg (28.0-33.3); Mean Corpuscular Volume 98.1 fL (83.0-100.0); Monocytes % 10.3 %; Neutrophils # 16.2 K/mcL (1.6-8.9); Platelet Count 262 K/mcL (140-400); Red Blood Count 3.21 M/mcL (4.19-5.50); Segmented Neutrophils % 81.9 %; White Blood Count 19.8 K/mcL (4.3-11.1)
[2020-11-12 23:03] LABS: VBG Ionized Calcium 1.08 mmol/L (1.15-1.35)
[2020-11-12 23:06] LABS: Bacteria,Urine Few per hpf (None-Few); Bilirubin,Urine Negative (Negative); Blood,Urine Trace (Negative); Clarity,Urine Turbid (Clear); Color,Urine Yellow (Yellow); Glucose,Urine (UA) Normal (Normal); Ketones,Urine Negative (Negative); Leukocyte Esterase,Urine Moderate (Negative); Mucus,Urine Few per lpf (None-Few); Nitrite,Urine Negative (Negative); Protein,Urine 100 mg/dL (Neg-Trace); RBC,Urine 0-3 per hpf (0-3); Specific Gravity,Urine 1.016 (1.010-1.025); WBC,Urine 50-100 per hpf (0-3)
[2020-11-12 23:22] LABS: Albumin 3.8 g/dL (3.5-5.7); Albumin/Globulin Ratio 1.7 (1.1-2.2); Bilirubin,Direct 1.9 mg/dL (0.0-0.2); Bilirubin,Indirect 1.6 mg/dL (0.0-1.0); Bilirubin,Total 3.5 mg/dL (0.3-1.0); Globulin 2.3 g/dL (2.4-3.5); Total Protein 6.1 g/dL (6.4-8.9)
[2020-11-12] MEDS ORDERED: cefTRIAXone 1,000 MG in Water for inj. (sterile) 10 ML IVP ONE (23:25)
[2020-11-12 23:26] LABS: Calcium 9.2 mg/dL (8.6-10.3); Magnesium 2.2 mg/dL (1.6-2.6); Phosphorous 3.8 mg/dL (2.7-4.5); Potassium 3.6 mEq/L (3.5-5.1); Troponin I 0.04 ng/mL (< 0.04)
[2020-11-12 23:39] LABS: Thyroid Stimulating Hormone 1.236 mcIU/mL (0.340-5.600)
[2020-11-12] MEDS ORDERED: Furosemide 40 MG/4 ML VIAL IVP ONE (23:58)
[2020-11-13] MEDS: Aspirin 81 MG TAB.CHEW PO SCH (00:24)
[2020-11-13] MEDS ORDERED: Naloxone 0.4 MG/ML INJ IVP PRN (01:00)
[2020-11-13] MEDS ORDERED: Ondansetron 4 MG/2 ML VIAL IVP PRN (02:47)
[2020-11-13] MEDS ORDERED: *HR* Dextrose 50 % in Water (Vial) 50 ML VIAL IVP PRN (02:50)
[2020-11-13] MEDS ORDERED: Dextrose Gel 15 GM/37.5 ML TUBE PO PRN ×2 (02:50)
[2020-11-13] MEDS ORDERED: D5% in Water 1,000 ML IVC PRN (02:50)
[2020-11-13] MEDS ORDERED: Perflutren Lipid Microsphere 1.3 ML in 0.9 % Sodium Chloride 8.7 ML IVP PRN (02:54)
[2020-11-13 04:25] LABS: Basophils # 0.1 K/mcL (0.0-0.2); Basophils % 0.4 %; Eosinophils % 0.1 %; Hematocrit 27.4 % (37.5-50.1); Hemoglobin 8.6 g/dL (12.9-16.9); Immature Granulocytes % 0.6 % (0-4); Lymphocytes # 1.1 K/mcL (0.6-4.6); Lymphocytes % 6.9 %; Mean Corpuscular HGB Conc 31.4 g/dL (31.6-35.5); Mean Corpuscular Hemoglobin 30.2 pg (28.0-33.3); Mean Corpuscular Volume 96.1 fL (83.0-100.0); Monocytes # 1.6 K/mcL (0.0-1.3); Monocytes % 10.2 %; Neutrophils # 13.1 K/mcL (1.6-8.9); Platelet Count 220 K/mcL (140-400); Red Blood Count 2.85 M/mcL (4.19-5.50); Red Cell Distribution Width 15.9 % (11.5-14.5); Segmented Neutrophils % 81.8 %
[2020-11-13 04:35] LABS: INR 1.2; Prothrombin Time 14.3 Seconds (9.4-12.1)
[2020-11-13 04:36] LABS: Activated Partial Thrombo Time 27.3 Seconds (26.0-36.0)
[2020-11-13 04:48] LABS: Albumin 3.4 g/dL (3.5-5.7); Albumin/Globulin Ratio 1.8 (1.1-2.2); Bilirubin,Total 2.8 mg/dL (0.3-1.0); Calcium 9.1 mg/dL (8.6-10.3); Globulin 1.9 g/dL (2.4-3.5); Magnesium 2.1 mg/dL (1.6-2.6); Potassium 3.4 mEq/L (3.5-5.1); Total Protein 5.3 g/dL (6.4-8.9)
[2020-11-13] MEDS: Insulin LISPRO 300 UNITS/3 ML VIAL SUBQ SCH (06:10)
[2020-11-13] MEDS ORDERED: CefTRIAXone 1,000 MG VIAL ONE (07:57)
[2020-11-13] MEDS: Furosemide 40 MG/4 ML VIAL IVP SCH (08:07)
[2020-11-13] MEDS: cefTRIAXone 1,000 MG in Water for inj. (sterile) 10 ML IVP SCH (08:08)
[2020-11-13] MEDS: *HR* Heparin 5,000 UNIT/ML VIAL SQ SCH ×3 (08:09→21:37)
[2020-11-13] MEDS: Aspirin Enteric Coated 81 MG Tablet PO SCH (10:41)
[2020-11-13] MEDS: *HR* Amiodarone 200 MG TABLET PO SCH (12:40)
[2020-11-14 05:35] LABS: Basophils # 0.1 K/mcL (0.0-0.2); Basophils % 0.7 %; Eosinophils # 0.1 K/mcL (0.0-0.6); Eosinophils % 1.4 %; Hematocrit 27.8 % (37.5-50.1); Hemoglobin 8.5 g/dL (12.9-16.9); Immature Granulocytes % 0.4 % (0-4); Lymphocytes # 1.2 K/mcL (0.6-4.6); Lymphocytes % 12.3 %; Mean Corpuscular HGB Conc 30.6 g/dL (31.6-35.5); Mean Corpuscular Hemoglobin 29.9 pg (28.0-33.3); Mean Corpuscular Volume 97.9 fL (83.0-100.0); Mean Platelet Volume 12.1 fL (9.4-12.4); Monocytes # 1.1 K/mcL (0.0-1.3); Monocytes % 10.4 %; Neutrophils # 7.5 K/mcL (1.6-8.9); Platelet Count 224 K/mcL (140-400); Red Blood Count 2.84 M/mcL (4.19-5.50); Red Cell Distribution Width 15.4 % (11.5-14.5); Segmented Neutrophils % 74.8 %; White Blood Count 10.1 K/mcL (4.3-11.1)
[2020-11-14] MEDS: *HR* Heparin 5,000 UNIT/ML VIAL SQ SCH ×3 (05:41→21:08)
[2020-11-14 05:52] LABS: Albumin 3.2 g/dL (3.5-5.7); Albumin/Globulin Ratio 1.5 (1.1-2.2); Bilirubin,Indirect 0.7 mg/dL (0.0-1.0); Bilirubin,Total 1.7 mg/dL (0.3-1.0); Calcium 8.8 mg/dL (8.6-10.3); Globulin 2.1 g/dL (2.4-3.5); Magnesium 2.3 mg/dL (1.6-2.6); Potassium 3.6 mEq/L (3.5-5.1); Total Protein 5.3 g/dL (6.4-8.9)
[2020-11-14] MEDS: *HR* Amiodarone 200 MG TABLET PO SCH (09:31)
[2020-11-14] MEDS: Furosemide 40 MG/4 ML VIAL IVP SCH (09:32)
[2020-11-14] MEDS: cefTRIAXone 1,000 MG in Water for inj. (sterile) 10 ML IVP SCH (09:32)
[2020-11-14] MEDS: Aspirin Enteric Coated 81 MG Tablet PO SCH (09:32)
[2020-11-14] MEDS: Insulin LISPRO 300 UNITS/3 ML VIAL SUBQ SCH (17:22)
[2020-11-14] MEDS: Aspirin 81 MG TAB.CHEW PO SCH (17:22)
[2020-11-15 02:06] LABS: Basophils # 0.1 K/mcL (0.0-0.2); Basophils % 0.6 %; Eosinophils # 0.2 K/mcL (0.0-0.6); Eosinophils % 2.7 %; Hematocrit 27.6 % (37.5-50.1); Hemoglobin 8.5 g/dL (12.9-16.9); Immature Granulocytes % 0.3 % (0-4); Lymphocytes # 1.3 K/mcL (0.6-4.6); Lymphocytes % 16.7 %; Mean Corpuscular HGB Conc 30.8 g/dL (31.6-35.5); Mean Corpuscular Volume 97.5 fL (83.0-100.0); Mean Platelet Volume 12.3 fL (9.4-12.4); Monocytes # 0.9 K/mcL (0.0-1.3); Monocytes % 11.9 %; Neutrophils # 5.2 K/mcL (1.6-8.9); Platelet Count 231 K/mcL (140-400); Red Blood Count 2.83 M/mcL (4.19-5.50); Red Cell Distribution Width 14.9 % (11.5-14.5); Segmented Neutrophils % 67.8 %; White Blood Count 7.7 K/mcL (4.3-11.1)
[2020-11-15 02:24] LABS: Albumin 3.2 g/dL (3.5-5.7); Albumin/Globulin Ratio 1.5 (1.1-2.2); Bilirubin,Direct 0.6 mg/dL (0.0-0.2); Bilirubin,Indirect 0.8 mg/dL (0.0-1.0); Bilirubin,Total 1.4 mg/dL (0.3-1.0); Calcium 8.7 mg/dL (8.6-10.3); Globulin 2.1 g/dL (2.4-3.5); Magnesium 2.3 mg/dL (1.6-2.6); Potassium 3.5 mEq/L (3.5-5.1); Total Protein 5.3 g/dL (6.4-8.9)
[2020-11-15] MEDS: *HR* Heparin 5,000 UNIT/ML VIAL SQ SCH ×3 (05:35→21:06)
[2020-11-15] MEDS: cefTRIAXone 1,000 MG in Water for inj. (sterile) 10 ML IVP SCH (09:21)
[2020-11-15] MEDS: Furosemide 40 MG/4 ML VIAL IVP SCH ×2 (09:22→21:05)
[2020-11-15] MEDS: *HR* Amiodarone 200 MG TABLET PO SCH (09:23)
[2020-11-15] MEDS: Aspirin Enteric Coated 81 MG Tablet PO SCH (09:23)
[2020-11-15] MEDS ORDERED: polyethylene glycoL 3350 17 GM POWD.PACK PO ONE (15:49)
[2020-11-16] MEDS: *HR* Heparin 5,000 UNIT/ML VIAL SQ SCH (05:49)
[2020-11-16 06:13] LABS: Basophils # 0.1 K/mcL (0.0-0.2); Basophils % 1.1 %; Eosinophils # 0.2 K/mcL (0.0-0.6); Eosinophils % 2.9 %; Hematocrit 27.2 % (37.5-50.1); Hemoglobin 8.5 g/dL (12.9-16.9); Immature Granulocytes % 0.5 % (0-4); Lymphocytes # 1.2 K/mcL (0.6-4.6); Lymphocytes % 18.2 %; Mean Corpuscular HGB Conc 31.3 g/dL (31.6-35.5); Mean Corpuscular Hemoglobin 29.9 pg (28.0-33.3); Mean Corpuscular Volume 95.8 fL (83.0-100.0); Mean Platelet Volume 11.8 fL (9.4-12.4); Monocytes % 15.6 %; Neutrophils # 4.1 K/mcL (1.6-8.9); Platelet Count 240 K/mcL (140-400); Red Blood Count 2.84 M/mcL (4.19-5.50); Red Cell Distribution Width 15.2 % (11.5-14.5); Segmented Neutrophils % 61.7 %; White Blood Count 6.6 K/mcL (4.3-11.1)
[2020-11-16 06:34] LABS: Albumin 3.3 g/dL (3.5-5.7); Albumin/Globulin Ratio 1.7 (1.1-2.2); Bilirubin,Direct 0.6 mg/dL (0.0-0.2); Bilirubin,Indirect 0.7 mg/dL (0.0-1.0); Bilirubin,Total 1.3 mg/dL (0.3-1.0); Calcium 8.6 mg/dL (8.6-10.3); Globulin 1.9 g/dL (2.4-3.5); Magnesium 2.1 mg/dL (1.6-2.6); Total Protein 5.2 g/dL (6.4-8.9)
[2020-11-16 06:44] VITALS: BP 107/65
[2020-11-16] MEDS ORDERED: Cefdinir 300 MG CAPSULE PO SCH (09:00)
[2020-11-16] MEDS: *HR* Amiodarone 200 MG TABLET PO SCH (09:14)
[2020-11-16] MEDS: Aspirin Enteric Coated 81 MG Tablet PO SCH (09:15)
[2020-11-16] MEDS: Furosemide 40 MG/4 ML VIAL IVP SCH (09:16)
== END 2020-11-16 12:25 | disposition home or self-care (01) | DRG 280 ==
LOC: EMEROOARM 20:42 → CDU 20:42 → SUATTDRO 11-13 00:31 → 3BNU 11-14 16:48
PROVIDERS: ADMIT Family Medicine; ATTEND Internal Medicine

== ENCOUNTER 2021-01-04 14:52 | Inpatient (IN) ==
[2021-01-04] MEDS ORDERED: Ondansetron 4 MG/2 ML VIAL IVP PRN (17:05)
[2021-01-04] MEDS ORDERED: Naloxone 0.4 MG/ML INJ IVP PRN (17:05)
[2021-01-04] MEDS ORDERED: Ringers Solution, Lactated 1,000 ML IVC SCH (17:15)
[2021-01-04] MEDS ORDERED: cefTRIAXone 1,000 MG in Water for inj. (sterile) 10 ML IVP SCH (18:00)
[2021-01-04] MEDS ORDERED: *HR* Heparin 5,000 UNIT/ML VIAL SQ SCH (18:00)
[2021-01-04 18:32] LABS: Basophils # 0.1 K/mcL (0.0-0.2); Basophils % 0.4 %; Eosinophils # 0.1 K/mcL (0.0-0.6); Eosinophils % 0.5 %; Hematocrit 34.9 % (37.5-50.1); Hemoglobin 11.3 g/dL (12.9-16.9); Immature Granulocytes % 0.7 % (0-4); Lymphocytes # 1.2 K/mcL (0.6-4.6); Lymphocytes % 9.3 %; Mean Corpuscular HGB Conc 32.4 g/dL (31.6-35.5); Mean Corpuscular Hemoglobin 29.4 pg (28.0-33.3); Mean Corpuscular Volume 90.6 fL (83.0-100.0); Mean Platelet Volume 11.2 fL (9.4-12.4); Monocytes # 1.3 K/mcL (0.0-1.3); Monocytes % 9.7 %; Neutrophils # 10.4 K/mcL (1.6-8.9); Platelet Count 278 K/mcL (140-400); Red Blood Count 3.85 M/mcL (4.19-5.50); Red Cell Distribution Width 15.4 % (11.5-14.5); Segmented Neutrophils % 79.4 %; White Blood Count 13.1 K/mcL (4.3-11.1)
[2021-01-04 18:38] LABS: Alanine Aminotransferase 52 Units/L (7-52); Albumin 3.9 g/dL (3.5-5.7); Albumin/Globulin Ratio 2.3 (1.1-2.2); Alkaline Phosphatase 93 Units/L (34-104); Aspartate Amino Transferase 53 Units/L (13-39); BUN/Creatinine Ratio 17 (6-26); Bilirubin,Total 3.3 mg/dL (0.3-1.0); Blood Urea Nitrogen 22 mg/dL (8-23); Calcium 9.7 mg/dL (8.6-10.3); Carbon Dioxide 33 mEq/L (23-29); Chloride 99 mEq/L (98-107); Globulin 1.7 g/dL (2.4-3.5); Glucose 132 mg/dL (70-105); Osmolality,Calculated 293 (280-300); Phosphorous 3.7 mg/dL (2.7-4.5); Potassium 3.3 mEq/L (3.5-5.1); Sodium 139 mEq/L (136-145); Total Protein 5.6 g/dL (6.4-8.9); eGFR For African Americans > 60 (> 60); eGFR For Non-African Americans 54 (> 60)
[2021-01-04 18:41] LABS: INR 1.9; Prothrombin Time 21.1 Seconds (9.4-12.1)
[2021-01-04 18:43] LABS: Activated Partial Thrombo Time 30.9 Seconds (26.0-36.0)
[2021-01-04 19:39] LABS: Bilirubin,Urine Negative (Negative); Blood,Urine Small (Negative); Clarity,Urine Clear (Clear); Color,Urine Yellow (Yellow); Glucose,Urine (UA) Normal (Normal); Hyaline Casts,Urine Few per lpf (None Seen); Ketones,Urine Negative (Negative); Leukocyte Esterase,Urine Moderate (Negative); Mucus,Urine Few per lpf (None-Few); Nitrite,Urine Positive (Negative); Protein,Urine 30 mg/dL (Neg-Trace); RBC,Urine 0-3 per hpf (0-3); Specific Gravity,Urine 1.013 (1.010-1.025); WBC,Urine 30-50 per hpf (0-3)
[2021-01-04] MEDS: Mirtazapine 15 MG TABLET PO SCH (20:03)
[2021-01-04] MEDS ORDERED: Apixaban 5 MG TABLET PO SCH (21:00)
[2021-01-05] MEDS: Fluconazole 40 MG/ML UDC PO SCH (08:08)
[2021-01-05] MEDS: cefTRIAXone 1,000 MG in Water for inj. (sterile) 10 ML IVP SCH (14:51)
[2021-01-05] MEDS ORDERED: Nitroglycerin 0.4 MG TAB.SUBL SL PRN (15:30)
[2021-01-05] MEDS: Apixaban 5 MG TABLET PO SCH (20:15)
[2021-01-05] MEDS: Mirtazapine 15 MG TABLET PO SCH (20:15)
[2021-01-06 02:32] LABS: Basophils # 0.1 K/mcL (0.0-0.2); Basophils % 0.3 %; Eosinophils # 0.1 K/mcL (0.0-0.6); Eosinophils % 0.4 %; Hematocrit 35.4 % (37.5-50.1); Hemoglobin 11.7 g/dL (12.9-16.9); Immature Granulocytes % 0.9 % (0-4); Lymphocytes # 1.6 K/mcL (0.6-4.6); Lymphocytes % 9.5 %; Mean Corpuscular HGB Conc 33.1 g/dL (31.6-35.5); Mean Corpuscular Hemoglobin 30.2 pg (28.0-33.3); Mean Corpuscular Volume 91.5 fL (83.0-100.0); Mean Platelet Volume 11.4 fL (9.4-12.4); Monocytes # 1.5 K/mcL (0.0-1.3); Monocytes % 8.4 %; Neutrophils # 13.9 K/mcL (1.6-8.9); Platelet Count 272 K/mcL (140-400); Red Blood Count 3.87 M/mcL (4.19-5.50); Red Cell Distribution Width 15.7 % (11.5-14.5); Segmented Neutrophils % 80.5 %; White Blood Count 17.3 K/mcL (4.3-11.1)
[2021-01-06 02:51] LABS: BUN/Creatinine Ratio 18 (6-26); Blood Urea Nitrogen 24 mg/dL (8-23); Calcium 9.6 mg/dL (8.6-10.3); Carbon Dioxide 28 mEq/L (23-29); Chloride 103 mEq/L (98-107); Glucose 121 mg/dL (70-105); Osmolality,Calculated 299 (280-300); Phosphorous 3.3 mg/dL (2.7-4.5); Potassium 3.8 mEq/L (3.5-5.1); Sodium 142 mEq/L (136-145); eGFR For African Americans > 60 (> 60); eGFR For Non-African Americans 54 (> 60)
[2021-01-06] MEDS: cefTRIAXone 1,000 MG in Water for inj. (sterile) 10 ML IVP SCH (08:15)
[2021-01-06] MEDS ORDERED: Haloperidol Lactate 5 MG/ML VIAL IM ONE (09:05)
[2021-01-06] MEDS: *HR* Amiodarone 200 MG TABLET PO SCH (09:10)
[2021-01-06] MEDS: Fluconazole 40 MG/ML UDC PO SCH (09:10)
[2021-01-06] MEDS ORDERED: Furosemide 20 MG/2 ML VIAL IVP ONE ×2 (09:16→11:28)
[2021-01-06] MEDS: Apixaban 5 MG TABLET PO SCH ×2 (09:26→22:34)
[2021-01-06] MEDS ORDERED: *HR* LORazepam 2 MG/ML VIAL IVP ONE (09:42)
[2021-01-06] MEDS: Piperacillin/Tazobactam 3.375 GM in 0.9 % Sodium Chloride Mini Bag 100 ML IVPB SCH ×2 (10:47→17:26)
[2021-01-06] MEDS ORDERED: Perflutren Lipid Microsphere 1.3 ML in 0.9 % Sodium Chloride 8.7 ML IVP PRN (11:36)
[2021-01-06 12:47] LABS: ABG Base Excess 6 mEq/L (-2 to 3); ABG HCO3 31 mEq/L (21-27); ABG Oxygen Saturation 95 % (95-98); ABG PCO2 46 mmHg (35-45); ABG PH 7.44 pH Units (7.32-7.45); ABG PO2 75 mmHg (85-104); ABG TCO2 33 mEq/L (20-26)
[2021-01-06] MEDS: Nystatin SUSP 5 ML UD.LIQ PO SCH ×4 (13:03→22:35)
[2021-01-06 14:35] LABS: Thyroid Stimulating Hormone 0.729 mcIU/mL (0.340-5.600)
[2021-01-06 14:48] LABS: Folate 8.2 ng/mL (3.0-16.0)
[2021-01-06] MEDS: calcitrioL 0.25 MCG CAPSULE PO SCH (15:01)
[2021-01-06] MEDS: Mirtazapine 15 MG TABLET PO SCH (22:35)
[2021-01-07] MEDS: Piperacillin/Tazobactam 3.375 GM in 0.9 % Sodium Chloride Mini Bag 100 ML IVPB SCH ×3 (01:33→20:04)
[2021-01-07 07:50] LABS: Basophils # 0.1 K/mcL (0.0-0.2); Basophils % 0.4 %; Eosinophils # 0.1 K/mcL (0.0-0.6); Eosinophils % 0.8 %; Hematocrit 33.4 % (37.5-50.1); Hemoglobin 10.9 g/dL (12.9-16.9); Immature Granulocytes % 0.6 % (0-4); Lymphocytes # 1.1 K/mcL (0.6-4.6); Lymphocytes % 8.3 %; Mean Corpuscular HGB Conc 32.6 g/dL (31.6-35.5); Mean Corpuscular Hemoglobin 30.2 pg (28.0-33.3); Mean Corpuscular Volume 92.5 fL (83.0-100.0); Mean Platelet Volume 11.2 fL (9.4-12.4); Monocytes # 1.4 K/mcL (0.0-1.3); Monocytes % 10.5 %; Neutrophils # 10.6 K/mcL (1.6-8.9); Platelet Count 251 K/mcL (140-400); Red Blood Count 3.61 M/mcL (4.19-5.50); Red Cell Distribution Width 15.9 % (11.5-14.5); Segmented Neutrophils % 79.4 %; White Blood Count 13.4 K/mcL (4.3-11.1)
[2021-01-07 08:04] LABS: BUN/Creatinine Ratio 16 (6-26); Blood Urea Nitrogen 21 mg/dL (8-23); Calcium 9.7 mg/dL (8.6-10.3); Carbon Dioxide 31 mEq/L (23-29); Chloride 106 mEq/L (98-107); Glucose 107 mg/dL (70-105); Magnesium 2.1 mg/dL (1.6-2.6); Osmolality,Calculated 301 (280-300); Potassium 3.7 mEq/L (3.5-5.1); Sodium 144 mEq/L (136-145); eGFR For African Americans > 60 (> 60); eGFR For Non-African Americans 53 (> 60)
[2021-01-07] MEDS: Nystatin SUSP 5 ML UD.LIQ PO SCH ×4 (09:53→21:05)
[2021-01-07] MEDS: Fluconazole 40 MG/ML UDC PO SCH (09:54)
[2021-01-07] MEDS: *HR* Amiodarone 200 MG TABLET PO SCH (09:54)
[2021-01-07] MEDS: Apixaban 5 MG TABLET PO SCH ×2 (09:54→21:04)
[2021-01-07] MEDS ORDERED: Ipratropium/Albuterol Neb 3 ML IH PRN (14:36)
[2021-01-07 17:33] LABS: Acinetobacter baumannii by PCR Not Detected (Not Detect); Candida albicans by PCR Not Detected (Not Detect); Candida glabrata by PCR Not Detected (Not Detect); Candida krusei by PCR Not Detected (Not Detect); Candida parapsilosis by PCR Not Detected (Not Detect); Candida tropicalis by PCR Not Detected (Not Detect); Enterobacter cloacae Cmplx PCR Not Detected (Not Detect); Enterobacteriaceae by PCR Not Detected (Not Detect); Enterococcus by PCR Not Detected (Not Detect); Escherichia coli by PCR Not Detected (Not Detect); Klebsiella oxytoca by PCR Not Detected (Not Detect); Klebsiella pneumoniae by PCR Not Detected (Not Detect); Proteus by PCR Not Detected (Not Detect); Pseudomonas aeruginosa by PCR Not Detected (Not Detect); Serratia marcescens by PCR Not Detected (Not Detect); Staphylococcus aureus by PCR Not Detected (Not Detect); Staphylococcus by PCR Not Detected (Not Detect); Streptococcus agalactiae(B)PCR Not Detected (Not Detect); Streptococcus by PCR Not Detected (Not Detect); Streptococcus pneumoniae PCR Not Detected (Not Detect); Streptococcus pyogenes (A) PCR Not Detected (Not Detect)
[2021-01-07] MEDS: Mirtazapine 15 MG TABLET PO SCH (21:04)
[2021-01-08] MEDS: Piperacillin/Tazobactam 3.375 GM in 0.9 % Sodium Chloride Mini Bag 100 ML IVPB SCH ×4 (02:05→23:09)
[2021-01-08 05:07] LABS: Basophils # 0.1 K/mcL (0.0-0.2); Basophils % 0.4 %; Eosinophils # 0.2 K/mcL (0.0-0.6); Hematocrit 33.8 % (37.5-50.1); Hemoglobin 11.1 g/dL (12.9-16.9); Immature Granulocytes % 0.7 % (0-4); Lymphocytes # 1.1 K/mcL (0.6-4.6); Lymphocytes % 7.8 %; Mean Corpuscular HGB Conc 32.8 g/dL (31.6-35.5); Mean Corpuscular Hemoglobin 30.4 pg (28.0-33.3); Mean Corpuscular Volume 92.6 fL (83.0-100.0); Mean Platelet Volume 10.9 fL (9.4-12.4); Monocytes # 1.3 K/mcL (0.0-1.3); Monocytes % 9.1 %; Neutrophils # 11.8 K/mcL (1.6-8.9); Platelet Count 263 K/mcL (140-400); Red Blood Count 3.65 M/mcL (4.19-5.50); Red Cell Distribution Width 16.1 % (11.5-14.5); White Blood Count 14.6 K/mcL (4.3-11.1)
[2021-01-08 05:41] LABS: BUN/Creatinine Ratio 17 (6-26); Blood Urea Nitrogen 20 mg/dL (8-23); Calcium 9.6 mg/dL (8.6-10.3); Carbon Dioxide 30 mEq/L (23-29); Chloride 106 mEq/L (98-107); Creatine Kinase 250 Units/L (30-223); Glucose 103 mg/dL (70-105); Magnesium 2.1 mg/dL (1.6-2.6); Osmolality,Calculated 303 (280-300); Phosphorous 3.5 mg/dL (2.7-4.5); Potassium 3.9 mEq/L (3.5-5.1); Sodium 145 mEq/L (136-145); eGFR For African Americans > 60 (> 60); eGFR For Non-African Americans 58 (> 60)
[2021-01-08] MEDS ORDERED: Micafungin 100 MG in 0.9 % Sodium Chloride Mini Bag 100 ML IVPB SCH (09:00)
[2021-01-08] MEDS: *HR* Amiodarone 200 MG TABLET PO SCH (15:42)
[2021-01-08] MEDS: Apixaban 5 MG TABLET PO SCH ×2 (15:42→20:50)
[2021-01-08] MEDS: Nystatin SUSP 5 ML UD.LIQ PO SCH ×4 (15:42→20:50)
[2021-01-08] MEDS: WATER IVPB SCH (15:48)
[2021-01-08] MEDS: AMPHOTERICIN B LIPID COMPLEX IVPB SCH (15:48)
[2021-01-08] MEDS: D5 IVPB SCH (15:48)
[2021-01-08] MEDS: D5% in Water 50 ML IVPB SCH ×2 (15:50→18:37)
[2021-01-08] MEDS: calcitrioL 0.25 MCG CAPSULE PO SCH (15:50)
[2021-01-08 16:43] LABS: Appearance,CSF Clear (Clear)
[2021-01-08 16:47] LABS: Red Blood Cell,CSF < 2000 RBC/mcL
[2021-01-08 17:16] LABS: Glucose,CSF < 10 mg/dL (40-70); Total Protein,CSF 166 mg/dL (15-45)
[2021-01-08 17:23] LABS: Basophils,CSF 0 %; Eosinophils,CSF 0 %; Lymphocytes,CSF 0 %; Monocytes,CSF 0 %; Other Cells,CSF 100 %
[2021-01-08] MEDS ORDERED: QUEtiapine Fumarate 25 MG TABLET PO PRN (20:00)
[2021-01-08] MEDS ORDERED: *HR* Promethazine 25 MG/ML VIAL IM ONE (20:45)
[2021-01-08] MEDS: Mirtazapine 15 MG TABLET PO SCH (20:50)
[2021-01-08] MEDS ORDERED: Acetaminophen IV 1,000 MG/100 ML BAG IVPB ONE (21:20)
[2021-01-08] MEDS ORDERED: QUEtiapine Fumarate 25 MG TABLET PO ONE (23:02)
[2021-01-09 03:53] LABS: Basophils % 0.2 %; Eosinophils % 0.1 %; Hematocrit 30.7 % (37.5-50.1); Hemoglobin 10.1 g/dL (12.9-16.9); Immature Granulocytes % 0.9 % (0-4); Lymphocytes # 0.8 K/mcL (0.6-4.6); Mean Corpuscular HGB Conc 32.9 g/dL (31.6-35.5); Mean Corpuscular Hemoglobin 30.7 pg (28.0-33.3); Mean Corpuscular Volume 93.3 fL (83.0-100.0); Monocytes % 4.9 %; Neutrophils # 17.7 K/mcL (1.6-8.9); Platelet Count 205 K/mcL (140-400); Red Blood Count 3.29 M/mcL (4.19-5.50); Red Cell Distribution Width 16.7 % (11.5-14.5); Segmented Neutrophils % 89.9 %; White Blood Count 19.7 K/mcL (4.3-11.1)
[2021-01-09 04:04] LABS: BUN/Creatinine Ratio 18 (6-26); Blood Urea Nitrogen 24 mg/dL (8-23); Calcium 9.3 mg/dL (8.6-10.3); Carbon Dioxide 31 mEq/L (23-29); Chloride 106 mEq/L (98-107); Glucose 134 mg/dL (70-105); Osmolality,Calculated 306 (280-300); Phosphorous 3.1 mg/dL (2.7-4.5); Potassium 3.8 mEq/L (3.5-5.1); Sodium 145 mEq/L (136-145); eGFR For African Americans > 60 (> 60); eGFR For Non-African Americans 52 (> 60)
[2021-01-09] MEDS: Piperacillin/Tazobactam 3.375 GM in 0.9 % Sodium Chloride Mini Bag 100 ML IVPB SCH ×2 (06:10→15:23)
[2021-01-09] MEDS: *HR* Amiodarone 200 MG TABLET PO SCH ×2 (09:00→10:49)
[2021-01-09] MEDS: Nystatin SUSP 5 ML UD.LIQ PO SCH ×4 (09:00→15:24)
[2021-01-09] MEDS: Torsemide 20 MG TABLET PO SCH ×2 (09:00→10:48)
[2021-01-09] MEDS: Apixaban 5 MG TABLET PO SCH ×2 (09:00→10:48)
[2021-01-09] MEDS: D5 IVPB SCH (15:07)
[2021-01-09] MEDS: WATER IVPB SCH (15:07)
[2021-01-09] MEDS: AMPHOTERICIN B LIPID COMPLEX IVPB SCH (15:07)
[2021-01-09] MEDS: D5% in Water 50 ML IVPB SCH ×2 (16:10→18:27)
[2021-01-09 17:25] VITALS: BP 109/67
== END 2021-01-09 18:48 | disposition short-term general hospital (02) | DRG 193 ==
LOC: 3BNU → SUATTDRO 16:59 → 2NNU 01-09 14:50
PROVIDERS: ADMIT Internal Medicine; ATTEND Internal Medicine

== ENCOUNTER 2021-03-26 20:49 | Inpatient (IN) ==
[2021-03-26] MEDS ORDERED: Furosemide 40 MG/4 ML VIAL IVP ONE (23:11)
[2021-03-27 00:21] LABS: Hematocrit 36.1 % (37.5-50.1); Hemoglobin 11.3 g/dL (12.9-16.9); Immature Granulocytes % 0.1 % (0-4); Lymphocytes % 12.8 %; Mean Corpuscular HGB Conc 31.3 g/dL (31.6-35.5); Mean Corpuscular Hemoglobin 30.3 pg (28.0-33.3); Mean Corpuscular Volume 96.8 fL (83.0-100.0); Mean Platelet Volume 11.6 fL (9.4-12.4); Platelet Count 265 K/mcL (140-400); Red Blood Count 3.73 M/mcL (4.19-5.50); Red Cell Distribution Width 15.5 % (11.5-14.5); Segmented Neutrophils % 69.4 %; White Blood Count 6.7 K/mcL (4.3-11.1)
[2021-03-27 00:22] LABS: Basophils # 0.1 K/mcL (0.0-0.2); Basophils % 0.9 %; Eosinophils # 0.1 K/mcL (0.0-0.6); Eosinophils % 1.8 %; Lymphocytes # 0.9 K/mcL (0.6-4.6); Neutrophils # 4.7 K/mcL (1.6-8.9)
[2021-03-27 00:30] LABS: INR 2.2; Prothrombin Time 24.5 Seconds (9.4-12.1)
[2021-03-27 00:32] LABS: Activated Partial Thrombo Time 39.1 Seconds (26.0-36.0)
[2021-03-27 00:42] LABS: BUN/Creatinine Ratio 15 (6-26); Blood Urea Nitrogen 31 mg/dL (8-23); Carbon Dioxide 32 mEq/L (23-29); Chloride 100 mEq/L (98-107); Glucose 93 mg/dL (70-105); Osmolality,Calculated 300 (280-300); Potassium 3.4 mEq/L (3.5-5.1); Sodium 142 mEq/L (136-145); eGFR For African Americans 38 (> 60); eGFR For Non-African Americans 31 (> 60)
[2021-03-27 00:43] LABS: Troponin I < 0.03 ng/mL (< 0.04)
[2021-03-27] MEDS ORDERED: Naloxone 0.4 MG/ML INJ IVP PRN (02:11)
[2021-03-27] MEDS ORDERED: Albumin 25% 25gram/100mL 25 GM/100 ML IV.SOLN IVPB ONE ×2 (08:03→23:51)
[2021-03-27] MEDS ORDERED: Furosemide 40 MG/4 ML VIAL IVP SCH (09:00)
[2021-03-27 09:14] LABS: Albumin 3.5 g/dL (3.5-5.7); Albumin/Globulin Ratio 1.9 (1.1-2.2); Bilirubin,Direct 0.8 mg/dL (0.0-0.2); Bilirubin,Indirect 0.9 mg/dL (0.0-1.0); Bilirubin,Total 1.7 mg/dL (0.3-1.0); Globulin 1.8 g/dL (2.4-3.5); Lactate Dehydrogenase 145 Units/L (140-271); Total Protein 5.3 g/dL (6.4-8.9)
[2021-03-27 10:00] LABS: Adenovirus Not Detected (Not Detect); Bordetella Pertussis Not Detected (Not Detect); Chlamydophila pneumoniae Not Detected (Not Detect); Coronavirus 229E Not Detected (Not Detect); Coronavirus HKU1 Not Detected (Not Detect); Coronavirus NL63 Not Detected (Not Detect); Coronavirus OC43 Not Detected (Not Detect); Human Metapneumovirus Not Detected (Not Detect); Human Rhinovirus/Enterovirus Not Detected (Not Detect); Influenza A Subtype 2009 H1 Not Detected (Not Detect); Influenza B Not Detected (Not Detect); Mycoplasma pneumoniae Not Detected (Not Detect); Parainfluenza Virus 1 Not Detected (Not Detect); Parainfluenza Virus 2 Not Detected (Not Detect); Parainfluenza Virus 3 Not Detected (Not Detect); Parainfluenza Virus 4 Not Detected (Not Detect); Respiratory Syncytial Virus Not Detected (Not Detect); SARS-CoV-2 Not Detected (Not Detect)
[2021-03-27 16:41] LABS: RBC,Pleural Fluid < 2000 RBC/mcL
[2021-03-27 16:57] LABS: Glucose,Pleural Fluid 117 mg/dL (No Ref Range); LDH,Pleural Fluid 50 Units/L (No Ref Range); Total Protein,Pleural Fluid < 2.0 g/dL
[2021-03-27] MEDS ORDERED: Ondansetron ODT 4 MG TAB.RAPDIS SL PRN (17:26)
[2021-03-27] MEDS ORDERED: Mag Hydrox/Al Hydrox/Simeth 30 ML UDC PO PRN (17:26)
[2021-03-27 17:31] LABS: Basophils,Pleural Fluid 0 %; Eosinophils,Pleural Fluid 0 %
[2021-03-27 17:32] LABS: Appearance of Pleural Fl Clear (Clear)
[2021-03-27] MEDS ORDERED: Melatonin 3 MG TABLET PO PRN (21:00)
[2021-03-27] MEDS: Apixaban 5 MG TABLET PO SCH (21:48)
[2021-03-28 02:53] LABS: Basophils % 0.7 %; Eosinophils # 0.1 K/mcL (0.0-0.6); Eosinophils % 1.2 %; Hemoglobin 9.3 g/dL (12.9-16.9); Immature Granulocytes % 0.5 % (0-4); Lymphocytes % 16.5 %; Mean Corpuscular Hemoglobin 30.1 pg (28.0-33.3); Mean Corpuscular Volume 97.1 fL (83.0-100.0); Mean Platelet Volume 11.9 fL (9.4-12.4); Monocytes # 0.9 K/mcL (0.0-1.3); Monocytes % 14.9 %; Neutrophils # 3.9 K/mcL (1.6-8.9); Platelet Count 216 K/mcL (140-400); Red Blood Count 3.09 M/mcL (4.19-5.50); Red Cell Distribution Width 15.7 % (11.5-14.5); Segmented Neutrophils % 66.2 %; White Blood Count 5.8 K/mcL (4.3-11.1)
[2021-03-28 03:07] LABS: Albumin 3.4 g/dL (3.5-5.7); Albumin/Globulin Ratio 2.1 (1.1-2.2); Bilirubin,Total 1.1 mg/dL (0.3-1.0); Calcium 8.7 mg/dL (8.6-10.3); Globulin 1.6 g/dL (2.4-3.5); Potassium 3.6 mEq/L (3.5-5.1)
[2021-03-28] MEDS: Apixaban 5 MG TABLET PO SCH ×2 (07:59→20:07)
[2021-03-28] MEDS ORDERED: Nitroglycerin 0.4 MG TAB.SUBL SL PRN (08:43)
[2021-03-28] MEDS ORDERED: Fluconazole 200 MG/100 ML 200 MG/100 ML BAG IVPB SCH (09:00)
[2021-03-28] MEDS: *HR* Amiodarone 200 MG TABLET PO SCH (09:14)
[2021-03-28 16:26] LABS: Red Blood Cell,CSF < 2000 RBC/mcL
[2021-03-28 16:32] LABS: Appearance,CSF Clear (Clear)
[2021-03-28 16:52] LABS: Glucose,CSF 68 mg/dL (40-70); Total Protein,CSF 45 mg/dL (15-45)
[2021-03-28 17:19] LABS: Basophils,CSF 0 %; Eosinophils,CSF 0 %
[2021-03-28] MEDS ORDERED: Mirtazapine 15 MG TABLET PO SCH (21:00)
[2021-03-29 06:49] LABS: Basophils % 0.6 %; Eosinophils # 0.2 K/mcL (0.0-0.6); Eosinophils % 2.2 %; Hematocrit 31.5 % (37.5-50.1); Hemoglobin 10.3 g/dL (12.9-16.9); Immature Granulocytes % 0.3 % (0-4); Lymphocytes # 1.1 K/mcL (0.6-4.6); Lymphocytes % 15.8 %; Mean Corpuscular HGB Conc 32.7 g/dL (31.6-35.5); Mean Corpuscular Hemoglobin 31.4 pg (28.0-33.3); Monocytes # 1.2 K/mcL (0.0-1.3); Monocytes % 17.2 %; Neutrophils # 4.5 K/mcL (1.6-8.9); Platelet Count 228 K/mcL (140-400); Red Blood Count 3.28 M/mcL (4.19-5.50); Red Cell Distribution Width 15.6 % (11.5-14.5); Segmented Neutrophils % 63.9 %
[2021-03-29 07:14] LABS: Uric Acid 6.3 mg/dL (2.3-7.6)
[2021-03-29 07:16] LABS: Albumin 3.5 g/dL (3.5-5.7); Albumin/Globulin Ratio 2.1 (1.1-2.2); Bilirubin,Total 1.5 mg/dL (0.3-1.0); Calcium 9.3 mg/dL (8.6-10.3); Globulin 1.7 g/dL (2.4-3.5); Potassium 3.8 mEq/L (3.5-5.1); Total Protein 5.2 g/dL (6.4-8.9)
[2021-03-29] MEDS ORDERED: D5% in Water 50 ML IVPB SCH ×2 (08:45→09:15)
[2021-03-29] MEDS ORDERED: AMPHOTERICIN B LIPID COMPLEX IVPB SCH (09:00)
[2021-03-29] MEDS ORDERED: D5 IVPB SCH (09:00)
[2021-03-29] MEDS ORDERED: WATER IVPB SCH (09:00)
[2021-03-29] MEDS: *HR* Amiodarone 200 MG TABLET PO SCH (09:30)
[2021-03-29] MEDS: Apixaban 5 MG TABLET PO SCH (09:46)
[2021-03-29 15:55] VITALS: BP 107/61; PULSE 63; TEMP 98.1; O2SAT 96
[2021-03-29 17:31] LABS: Bacteria,Urine Few per hpf (None-Few); Bilirubin,Urine Negative (Negative); Blood,Urine Negative (Negative); Clarity,Urine Clear (Clear); Color,Urine Yellow (Yellow); Glucose,Urine (UA) Normal (Normal); Hyaline Casts,Urine Few per lpf (None Seen); Ketones,Urine Negative (Negative); Leukocyte Esterase,Urine Negative (Negative); Mucus,Urine Few per lpf (None-Few); Nitrite,Urine Negative (Negative); Protein,Urine 50 mg/dL (Neg-Trace); RBC,Urine 0-3 per hpf (0-3); Specific Gravity,Urine 1.019 (1.010-1.025); Urobilinogen,Urine >=8.0 mg/dL (Normal); WBC,Urine 0-3 per hpf (0-3)
[2021-03-29 23:43] LABS: Fluid Source for Cholesterol PLEURAL FLUID
[2021-03-30 15:35] LABS: Cholesterol,Body Fluid 35 mg/dL
== END 2021-03-29 19:15 | disposition home health service (06) | DRG 291 ==
LOC: EMEROOARM 20:49 → 3ANU 20:49 → SUATTDRO 03-27 00:55 → 3ANU 03-27 02:11
PROVIDERS: ADMIT Student in an Organized Health Care Education/Training Program; ATTEND Family Medicine

== ENCOUNTER 2022-03-05 17:03 | Inpatient (IN) ==
[2022-03-05] MEDS ORDERED: *HR* Atropine Sulfate 1 MG/10 ML SYRINGE IVP ONE ×3 (17:17→19:12)
[2022-03-05 17:39] LABS: Basophils # 0.1 K/mcL (0.0-0.2); Basophils % 0.7 %; Eosinophils # 0.1 K/mcL (0.0-0.6); Eosinophils % 1.4 %; Hematocrit 37.8 % (37.5-50.1); Hemoglobin 11.8 g/dL (12.9-16.9); Immature Granulocytes % 0.3 % (0-4); Lymphocytes # 1.4 K/mcL (0.6-4.6); Lymphocytes % 16.3 %; Mean Corpuscular HGB Conc 31.2 g/dL (31.6-35.5); Mean Corpuscular Hemoglobin 30.3 pg (28.0-33.3); Mean Corpuscular Volume 97.2 fL (83.0-100.0); Mean Platelet Volume 11.5 fL (9.4-12.4); Monocytes # 1.1 K/mcL (0.0-1.3); Monocytes % 12.8 %; Platelet Count 196 K/mcL (140-400); Red Blood Count 3.89 M/mcL (4.19-5.50); Red Cell Distribution Width 15.7 % (11.5-14.5); Segmented Neutrophils % 68.5 %; White Blood Count 8.8 K/mcL (4.3-11.1)
[2022-03-05 17:47] LABS: INR 1.8; Prothrombin Time 19.6 Seconds (9.4-12.1)
[2022-03-05 17:49] LABS: Activated Partial Thrombo Time 41.1 Seconds (26.0-36.0)
[2022-03-05 18:01] LABS: BUN/Creatinine Ratio 21 (6-26); Blood Urea Nitrogen 40 mg/dL (8-23); Calcium 8.9 mg/dL (8.6-10.3); Carbon Dioxide 29 mEq/L (23-29); Chloride 103 mEq/L (98-107); Glucose 134 mg/dL (70-105); Magnesium 2.1 mg/dL (1.6-2.6); Osmolality,Calculated 296 (280-300); Sodium 137 mEq/L (136-145)
[2022-03-05 18:02] LABS: Troponin I < 0.03 ng/mL (< 0.04)
[2022-03-05 18:16] LABS: Thyroid Stimulating Hormone 1.982 mcIU/mL (0.340-5.600)
[2022-03-05] MEDS ORDERED: *HR* Atropine Sulfate 1 MG/10 ML SYRINGE ONE (19:12)
[2022-03-05] MEDS ORDERED: *HR* OxyCODONE Immed Rel 5 MG TABLET PO PRN (19:56)
[2022-03-05] MEDS ORDERED: Naloxone 0.4 MG/ML INJ IVP PRN (19:56)
[2022-03-05] MEDS ORDERED: *HR* HYDROcodone/Acet 5/325 mg TABLET PO PRN (19:56)
[2022-03-05] MEDS ORDERED: Ondansetron ODT 4 MG TAB.RAPDIS SL PRN (19:56)
[2022-03-05] MEDS ORDERED: Melatonin 3 MG TABLET PO PRN (19:56)
[2022-03-05] MEDS ORDERED: Acetaminophen 325 MG TABLET PO PRN (19:56)
[2022-03-06 03:43] LABS: Calcium 8.9 mg/dL (8.6-10.3); Chol/HDL Ratio 3.1 (0-4.9); Magnesium 2.1 mg/dL (1.6-2.6); Phosphorous 4.3 mg/dL (2.7-4.5); Potassium 4.2 mEq/L (3.5-5.1)
[2022-03-06 03:49] LABS: INR 1.6; Prothrombin Time 18.1 Seconds (9.4-12.1)
[2022-03-06 03:51] LABS: Activated Partial Thrombo Time 37.7 Seconds (26.0-36.0)
[2022-03-06 03:53] LABS: Hematocrit 37.2 % (37.5-50.1); Hemoglobin 11.6 g/dL (12.9-16.9); Mean Corpuscular HGB Conc 31.2 g/dL (31.6-35.5); Mean Corpuscular Hemoglobin 29.7 pg (28.0-33.3); Mean Corpuscular Volume 95.1 fL (83.0-100.0); Platelet Count 192 K/mcL (140-400); Red Blood Count 3.91 M/mcL (4.19-5.50); Red Cell Distribution Width 15.7 % (11.5-14.5)
[2022-03-06] MEDS ORDERED: Acetaminophen 325 MG TABLET PO PRN (07:33)
[2022-03-07 01:28] LABS: Basophils # 0.1 K/mcL (0.0-0.2); Basophils % 0.8 %; Eosinophils # 0.1 K/mcL (0.0-0.6); Eosinophils % 1.3 %; Hemoglobin 11.3 g/dL (12.9-16.9); Immature Granulocytes % 0.4 % (0-4); Lymphocytes # 1.4 K/mcL (0.6-4.6); Lymphocytes % 16.5 %; Mean Corpuscular HGB Conc 31.4 g/dL (31.6-35.5); Mean Corpuscular Hemoglobin 29.7 pg (28.0-33.3); Mean Corpuscular Volume 94.5 fL (83.0-100.0); Mean Platelet Volume 12.1 fL (9.4-12.4); Monocytes # 1.1 K/mcL (0.0-1.3); Monocytes % 13.7 %; Neutrophils # 5.5 K/mcL (1.6-8.9); Platelet Count 179 K/mcL (140-400); Red Blood Count 3.81 M/mcL (4.19-5.50); Red Cell Distribution Width 15.7 % (11.5-14.5); Segmented Neutrophils % 67.3 %; White Blood Count 8.2 K/mcL (4.3-11.1)
[2022-03-07 01:45] LABS: Calcium 8.6 mg/dL (8.6-10.3); Magnesium 2.2 mg/dL (1.6-2.6); Potassium 3.9 mEq/L (3.5-5.1)
[2022-03-08 06:33] LABS: Calcium 8.7 mg/dL (8.6-10.3); Potassium 4.1 mEq/L (3.5-5.1)
[2022-03-09 03:06] LABS: Basophils % 0.5 %; Immature Granulocytes % 0.4 % (0-4); Mean Platelet Volume 13.1 fL (9.4-12.4); Red Cell Distribution Width 15.4 % (11.5-14.5)
[2022-03-09 03:08] LABS: Basophils # 0.1 K/mcL (0.0-0.2); Eosinophils # 0.1 K/mcL (0.0-0.6); Hematocrit 38.6 % (37.5-50.1); Hemoglobin 12.1 g/dL (12.9-16.9); Immature Platelets 14.1 % (1.1-6.1); Lymphocytes # 1.2 K/mcL (0.6-4.6); Lymphocytes % 11.1 %; Mean Corpuscular HGB Conc 31.3 g/dL (31.6-35.5); Mean Corpuscular Hemoglobin 30.3 pg (28.0-33.3); Mean Corpuscular Volume 96.5 fL (83.0-100.0); Monocytes # 1.2 K/mcL (0.0-1.3); Monocytes % 11.2 %; Neutrophils # 8.3 K/mcL (1.6-8.9); Platelet Count 170 K/mcL (140-400); Segmented Neutrophils % 75.8 %; White Blood Count 10.9 K/mcL (4.3-11.1)
[2022-03-09 03:14] LABS: Calcium 8.7 mg/dL (8.6-10.3); INR 1.2; Magnesium 2.3 mg/dL (1.6-2.6); Potassium 3.9 mEq/L (3.5-5.1); Prothrombin Time 13.5 Seconds (9.4-12.1)
[2022-03-09 03:15] LABS: Albumin 3.6 g/dL (3.5-5.7); Albumin/Globulin Ratio 1.4 (1.1-2.2); Bilirubin,Direct 0.4 mg/dL (0.0-0.2); Bilirubin,Indirect 0.5 mg/dL (0.0-1.0); Bilirubin,Total 0.9 mg/dL (0.3-1.0); Globulin 2.5 g/dL (2.4-3.5); Total Protein 6.1 g/dL (6.4-8.9)
[2022-03-09] MEDS: Pantoprazole 40 MG VIAL IVP SCH (10:50)
[2022-03-09] MEDS ORDERED: 0.9 % Sodium Chloride 1,000 ML ONE (11:47)
[2022-03-09] MEDS ORDERED: 0.9 % Sodium Chloride 500 ML ONE (11:47)
[2022-03-09] MEDS ORDERED: *HR* FentaNYL (PF) 100 MCG/2 ML VIAL ONE (11:49)
[2022-03-09] MEDS ORDERED: *HR* Midazolam HCl 2 MG/2 ML VIAL ONE (11:50)
[2022-03-09] MEDS: CeFAZolin 2 GM/120 ML BAG IVPB SCH (19:20)
[2022-03-10] MEDS: CeFAZolin 2 GM/120 ML BAG IVPB SCH (04:02)
[2022-03-10 05:29] LABS: Basophils % 0.4 %; Eosinophils # 0.1 K/mcL (0.0-0.6); Eosinophils % 1.3 %; Hematocrit 33.5 % (37.5-50.1); Hemoglobin 10.8 g/dL (12.9-16.9); Immature Granulocytes % 0.3 % (0-4); Lymphocytes # 1.1 K/mcL (0.6-4.6); Lymphocytes % 11.4 %; Mean Corpuscular HGB Conc 32.2 g/dL (31.6-35.5); Mean Corpuscular Hemoglobin 30.9 pg (28.0-33.3); Mean Corpuscular Volume 95.7 fL (83.0-100.0); Mean Platelet Volume 12.6 fL (9.4-12.4); Monocytes # 1.1 K/mcL (0.0-1.3); Monocytes % 11.3 %; Neutrophils # 7.1 K/mcL (1.6-8.9); Platelet Count 146 K/mcL (140-400); Red Cell Distribution Width 15.3 % (11.5-14.5); Segmented Neutrophils % 75.3 %; White Blood Count 9.4 K/mcL (4.3-11.1)
[2022-03-10 05:45] LABS: Calcium 8.2 mg/dL (8.6-10.3); Magnesium 2.1 mg/dL (1.6-2.6); Potassium 3.8 mEq/L (3.5-5.1)
[2022-03-10 07:09] VITALS: PULSE 62; O2SAT 89
[2022-03-10] MEDS: Pantoprazole 40 MG VIAL IVP SCH (08:47)
[2022-03-10 10:48] VITALS: BP 117/65; TEMP 98.9
== END 2022-03-10 12:20 | disposition home or self-care (01) | DRG 243 ==
LOC: 2NENU 17:03 → EMEROOARM 17:03 → SUATTDRO 19:55 → 2NENU 20:25
PROVIDERS: ADMIT Internal Medicine; ATTEND Internal Medicine